=== PATIENT | female | born 1980 | race Caucasian/White ===

== ENCOUNTER → 2017-06-12 07:37 | Outpatient (CLI) | payer BC, MEDICAID, SELFPAY ==
[2017-06-13 14:21] LABS: Chlamydia Trachomatis by PCR POSITIVE (Negative); Neisserai gonorrhoeae by PCR Negative (Negative); Probe Check PASS; Sample Adequacy Control PASS; Specimen Processing Control PASS
[2017-06-18 15:20] LABS: HPV Reflexed? NOT INDICATED
== END ==
PROVIDERS: Visit Provider Obstetrics & Gynecology
DX: R87.613 High grade squamous intraepithelial lesion on cytologic smear of cervix (HGSIL) (principal); Z11.3 Encounter for screening for infections with a predominantly sexual mode of transmission
CPT/HCPCS: 87491; 87591; 88175; G0145

== ENCOUNTER → 2017-10-08 19:33 | Outpatient (CLI) | payer BC, SELFPAY ==
[2017-10-08 21:30] LABS: Chlamydia Trachomatis by PCR Negative (Negative); Neisserai gonorrhoeae by PCR Negative (Negative); Probe Check PASS; Sample Adequacy Control PASS; Specimen Processing Control PASS
[2017-10-15 10:08] LABS: HPV HC, High Risk Negative (Negative)
[2017-10-15 10:47] LABS: HPV Reflexed? YES, CHARGE PATIENT
== END ==
PROVIDERS: Visit Provider Obstetrics & Gynecology
DX: Z12.4 Encounter for screening for malignant neoplasm of cervix (principal); Z11.3 Encounter for screening for infections with a predominantly sexual mode of transmission
CPT/HCPCS: 87491; 87591; 87624; 88175; G0145

== ENCOUNTER → 2019-03-10 16:54 | Outpatient (CLI) | payer MEDICAID, SELFPAY | PROVIDERS: Visit Provider Obstetrics & Gynecology | DX: N39.0 Urinary tract infection, site not specified (principal) | CPT/HCPCS: 87086; 87088 ==

== ENCOUNTER 2019-06-02 15:46 | Emergency (ER) | payer MEDICAID, SELFPAY ==
[2019-06-02 15:47] VITALS: BP 154/88; PULSE 90; RESP 18; TEMP 36.5; O2SAT 98; BMI 38.2
--- NOTE | 2019-06-02 16:15 | VDLE_ITS ---
Reason For Study: swelling RIGHT LEFT GSV is normal. CFV is compressible, spontaneous, phasic, CFV is compressible, spontaneous, phasic, competent, and demonstrates normal competent and demonstrates normal augmentation. augmentation. FV is compressible, spontaneous, phasic, competent and demonstrates normal augmentation. POP V is compressible, spontaneous, phasic, competent and demonstrates normal augmentation. T/P Trunk is compressible. PTV is compressible. RT PerV is compressible. Procedure Exam performed portable in ED. The exam was diagnostic. A preliminary report was called and/or faxed to ED staff. Interpretation Summary There is no evidence of right lower extremity deep vein thrombosis. Right great saphenous vein appears patent and compressible segmentally. Patent and compressible left common femoral vein Ordering Physician: Tresa Doan Performed By: Tez Pacheco RVT
[2019-06-02 16:24] VITALS: RESP 18
--- NOTE | 2019-06-02 16:24 | ED.DCSUM_ITS ---
- ER Visit Summary Date of Service: 06/02/19 Chief Complaint: [Swelling to the right leg] History of Present Illness: The patient is a 38 F [presents to the emergency department complaint swelling to the right leg that started about 2 weeks ago. Patient states that she has had some chronic swelling issues with her legs but typically they get better with elevation. Patient has history of varicose veins. Patient denies any chest pain or shortness of breath. Patient denies recent travel or surgery. She has no history of PE or DVT. Patient is a smoker. Patient denies any trauma to the leg. Patient apparently was seen in urgent care and referred to the ER for rule out of DVT.] Physical Examination: [HEENT-PERRLA, EOMI. Cranial nerves II through XII grossly intact. TMs clear. Mucous membranes moist. No adenopathy. Cardiovascular-regular rate and rhythm without murmur or ectopy Lungs-clear to auscultation, chest wall stable without crepitus or subcu emphysema Abdomen-normoactive bowel sounds, soft, nontender, no rebound or rigidity, no peritoneal signs. Extremities-intact ?4, normal range of motion, normal pulses, atraumatic. Right leg-patient has a large varicosity noted just proximal to the knee onto the medial thigh. Patient also has varicosity below the knee onto the calf. Patient states these are chronic. Patient has some mild discomfort behind the left knee. She has normal dorsal pedal posterior tibial pulses. Patient has normal popliteal pulses.] Test Results: [Venous Doppler of the right lower extremity was obtained and was negative for DVT] Emergency Department Course and Treatment: [] Treatment Plan: [Patient will be referred to vascular surgeon for follow-up as well as given referral to primary care physician. I suspect her edema may be due to her varicose veins.] Disposition: [Discharged home in stable condition] Impression: [Varicose veins right lower extremity Leg edema] This note was generated with [employer] dictation software. It may contain incorrect words, spelling, and punctuation that were not noted in review of the chart prior to signing ED Disposition - Plan for ED Patient: Referrals: Care Physician,No Primary [Primary Care Provider] -
--- NOTE | 2019-06-02 16:43 | ED.DEP ---
ED Disposition - Plan for ED Patient: Instructions: ED Peripheral Edema, Unilateral Referrals: Care Physician,No Primary [Primary Care Provider] - Roby Davis MD [STAFF PHYSICIAN] - 3-5 Days Fly Olsen MD [STAFF PHYSICIAN] - 3-5 Days
[2019-06-02 16:57] VITALS: RESP 16
--- NOTE | 2019-06-02 16:58 | ED.RN ---
REVIEWED D/C INSTRUCTIONS, FOLLOW UP CARE, AND S/S THAT WOULD WARRANT A RETURN TO THE ED WITH PT. PT VERBALIZED AN UNDERSTANDING AND DENIES FURTHER QUESTIONS FOR THIS RN. PT SKIN P/W/D, RESP EVEN AND UNLABORED, PT A&O X 3, NO DISTRESS NOTED. PT AMBULATED OUT OF ED, GAIT STEADY.
== END 2019-06-02 16:59 | disposition home or self-care (01) ==
LOC: ED 16:50
PROVIDERS: Emergency Provider Emergency Medicine
DX: I83.891 Varicose veins of right lower extremity with other complications (principal); Z72.0 Tobacco use
CPT/HCPCS: 93971; 99282

== ENCOUNTER → 2019-11-06 08:49 | Outpatient (CLI) | payer MEDICAID, SELFPAY ==
--- NOTE | 2019-11-06 08:54 | VDLE_ITS ---
Reason For Study: VARICOSE VEINS RIGHT GSV is normal. CFV is compressible, spontaneous, phasic, competent and demonstrates normal augmentation. FV is compressible, spontaneous, phasic, competent and demonstrates normal augmentation. POP V is compressible, spontaneous, phasic, competent and demonstrates normal augmentation. T/P Trunk is compressible. PTV is compressible. RT PerV is compressible. SFJ is INCOMPETENT and measures 1.0 X 1.0 cm. GSV above knee is INCOMPETENT for greater than 0.5 seconds. ASV distal thigh is INCOMPETENT for greater than 0.5 seconds and measures .9 X .9 cm. GSV below knee is competent. ASV proximal calf is INCOMPETENT for greater than 0.5 seconds and measures .6 X .8 cm. ASV mid calf is INCOMPETENT for greater than 0.5 seconds and measures .5 X .6 cm. SSV at junction is competent and measures .2 X .2 cm. Procedure Exam performed in department. Interpretation Summary No DVT or SVT right leg. GSV 7.7mm with reflux into large varicose branches. ASV branches with reflux throughout righ leg. Ordering Physician: Fly Olsen Referring Physician: CAROLYN JAMES Performed By: Justine Linda, MECHE, RVT
== END ==
PROVIDERS: PCP Internal Medicine; Referring Provider Surgery Vascular Surgery; Visit Provider Surgery Vascular Surgery
DX: I83.891 Varicose veins of right lower extremity with other complications (principal)
CPT/HCPCS: 93971

== ENCOUNTER 2019-12-27 14:31 | Emergency (ER) | payer MEDICAID, SELFPAY ==
[2019-12-27 14:31] VITALS: BP 151/99; PULSE 108; RESP 18; TEMP 36.9; O2SAT 98; BMI 39.3
--- NOTE | 2019-12-27 15:23 | ED.VISSUMM ---
- ER Visit Summary Date of Service: 12/27/19 Chief Complaint: [Anxiety] History of Present Illness: The patient is a 39 F [presents to the emergency department via EMS for panic attack. Patient states that her mind keeps racing. She denies feeling suicidal or homicidal. Patient states that she was prescribed escitalopram as well as Ativan by her primary care physician but she did not start taking it because she she thought she would take a supplement with vitamins in it that she felt would help her anxiety. Patient's been under increased stress due to the fact that she is not been able to work because of her anxiety. Patient does see a therapist once a month. She denies recent illness. Patient has no medical history otherwise.] Physical Examination: [HEENT-PERRLA, EOMI. Cranial nerves II through XII grossly intact. TMs clear. Mucous membranes moist. No adenopathy. Cardiovascular-regular rate and rhythm without murmur or ectopy Lungs-clear to auscultation, chest wall stable without crepitus or subcu emphysema Abdomen-normoactive bowel sounds, soft, nontender, no rebound or rigidity, no peritoneal signs. Extremities-intact ?4, normal range of motion, normal pulses, atraumatic] Test Results: [] Emergency Department Course and Treatment: [Patient was given Ativan 1 mg IM. Patient felt significantly improved afterwards. She did not want to speak with counseling center while in the department. She is not suicidal or homicidal.] Treatment Plan: [We will start her Celexa and Ativan as needed. Patient advised to follow-up with her primary care physician within next 5 to 7 days.] Disposition: [Discharged home in stable condition] Impression: Anxiety disorder [] This note was generated with TheBankCloud[employer] software. It may contain incorrect words, spelling, and punctuation that were not noted in review of the chart prior to signing ED Disposition - Plan for ED Patient: Referrals: Martínez Beck MD [Primary Care Provider] -
[2019-12-27] MEDS: LORazepam 2 MG/ML Syringe 1 MG IM (15:43)
--- NOTE | 2019-12-27 16:26 | ED.DEP ---
ED Disposition - Plan for ED Patient: Instructions: ED Panic Attack Referrals: Martínez Beck MD [Primary Care Provider] - 5-7 Days
[2019-12-27 16:54] VITALS: PULSE 80; RESP 16; O2SAT 100
== END 2019-12-27 17:26 | disposition home or self-care (01) ==
LOC: ED 15:18
PROVIDERS: Emergency Provider Emergency Medicine; PCP Internal Medicine
DX: F41.0 Panic disorder [episodic paroxysmal anxiety] (principal); Z72.0 Tobacco use
CPT/HCPCS: 96372; 99284

== ENCOUNTER 2020-01-26 10:45 | Emergency (ER) | payer MEDICAID, SELFPAY ==
[2020-01-26 10:47] VITALS: BP 140/100; PULSE 103; RESP 18; TEMP 36.6; O2SAT 100; BMI 36.6
--- NOTE | 2020-01-26 11:00 | EKG12_ITS ---
Test Reason : PALPS Blood Pressure : / mmHG Vent. Rate : 087 BPM Atrial Rate : 087 BPM P-R Int : 152 ms QRS Dur : 094 ms QT Int : 352 ms P-R-T Axes : 049 041 041 degrees QTc Int : 423 ms Normal sinus rhythm Normal ECG Confirmed by KEVAN HANNA, LORRAINE ([id number]), editor trade journal ALFA AREVALO ([id number]) on 02/01/2020 8:46:51 A M Referred By: ROOSEVELT/SANDRA Confirmed By:MARLYN MATHUR MD
--- NOTE | 2020-01-26 11:04 | NURSING ---
NO OLD EKGS
--- NOTE | 2020-01-26 11:29 | ED.DCSUM_ITS ---
History of Present Illness Chief Complaint: Anxiety Informant: Patient Onset: Days Context: Gradual Onset Timing: Continuous Current Severity: Moderate Maximum Severity: Moderate Narrative: The patient is a 39-year-old female who presents to the emergency department complaining of anxiety. The patient states that they have recently started her on sertraline on . They have also been trying to wean her lorazepam that she takes for anxiety at the same time. She states that she just feels more anxious. She states that she feels hyper and restless. She denies being suicidal or homicidal. She denies any increase in her depression. She states mostly it is just her anxiety and she feels very uncomfortable. She tried to talk to her primary care physician, but was unable to get in touch with them. She presented here. Prior similar symptoms: Yes Recent Illness/Hospitalization: No Past Medical History - Allergies and Home Meds Allergies/Adverse Reactions: Allergies No Known Allergies Allergy (Verified 01/26/20 10:45) Primary Care Physician: Martínez Beck MD [Primary Care Provider] - Prior records reviewed: Yes Past Medical History: - - Anxiety Surgical History: noncontributory Smoking Status: Current every day smoker Review of Systems General: Denies: Chills, Fever, Sweats Eyes: Denies: Visual changes - bilaterally, Diplopia ENT: Denies: Rhinorrhea, Sore throat Cardiovascular: Denies: Chest pain, Palpitations Respiratory: Denies: Dyspnea, Cough, Dyspnea on exertion Gastrointestinal: Denies: Abdominal pain, Nausea, Vomiting, Diarrhea, Melena, Hematochezia Genitourinary: Denies: Dysuria, Hematuria, Frequency Musculoskeletal: Denies: Back pain, Extremity Pain Skin: Denies: Rash, Wounds Neurological: Denies: Headache, Weakness, Numbness Psych: Reports: Anxiety. Denies: Suicidal thoughts, Suicidal ideations Physical Exam Vital Signs/Narrative: Vital Signs Temp Pulse Resp BP Pulse Ox 01/26/20 10:47 97.9 F 103 H 18 140/100 H 100 Inital Vital Signs reviewed: Yes General: Well nourished, Well developed, No Acute Distress Head: Normocephalic, Atraumatic Eyes: Perrl, EOMI ENT: Moist mucous membranes, No rhinorrhea Neck: Supple, Nontender Cardiovascular: Regular rate, Regular rhythm, No murmurs Respiratory: No distress, CTA bilaterally, Chest nontender Abdomen: Soft, Nontender, Nondistended, Normal bowel sounds Back: Nontender, Normal Inspection Extremities: Nontender, No edema Skin: Normal color, No rash Neurological: Alert, Oriented x3, Cranial nerves II-XII grossly intact, Normal Strength, Normal Sensation Psychological: Normal affect, Normal Mood Diagnostic/Tx/Re-eval Abnormal Lab Results 01/26/20 01/26/20 11:30 11:30 WBC 10.2 RBC 5.02 Hgb 16.8 H Hct 50.1 H MCV 99.8 H MCH 33.5 H MCHC 33.5 RDW Std Deviation 44.8 H RDW Coeff of João 12.0 Plt Count 300 MPV 9.0 Immature Gran % (Auto) 0.300 Neut % (Auto) 72.4 H Lymph % (Auto) 20.5 [place] % (Auto) 5.9 Eos % (Auto) 0.4 Baso % (Auto) 0.5 Absolute Neuts (auto) 7.4 Absolute Lymphs (auto) 2.09 Nucleated RBC % 0 Sodium 141 Potassium 3.3 L Chloride 109 H Carbon Dioxide 29.0 Anion Gap 3 L BUN 9 Creatinine 0.78 Estim Creat Clear Calc 87.13 Est GFR (MDRD) Af Amer 106 Est GFR (MDRD) Non-Af 87 BUN/Creatinine Ratio 11.6 Glucose 88 Calcium 9.5 - Medical Decision Making The patient presents with increasing anxiety symptoms. She is not suicidal or homicidal. She did have 2 recent medication change which the feels like it contributing to this. I did obtain metabolic work-up which was unremarkable. Screening labs were obtained. EKG shows sinus rhythm without prolonged QT, dysrhythmia, or other dangerous pathology. The patient was able to meet and discuss with outpatient psychiatry. They have arranged close follow-up which I feel is reasonable. At this point, I do feel the patient is safe for discharge. Impression 1. Anxiety ED Disposition - Plan for ED Patient: Instructions: ED Stress React Referrals: Martínez Beck MD [Primary Care Provider] -
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
[2020-01-26 11:48] LABS: Absolute Lymphocyte Count 2.09 X10^3/uL (0.83-4.51); Absolute Neutrophil Count 7.4 X10^3/uL (2.0-7.7); Basophil# 0.05 X10^3/uL; Basophil% 0.5 % (0-1); Eosinophil# 0.04 X10^3/uL; Eosinophils% 0.4 % (0-5); Hematocrit 50.1 % (37-47); Hemoglobin 16.8 g/dL (12.0-15.0); Lymphocyte # 2.09 X10^3/ul (4.0); Lymphocyte % 20.5 % (19-41); Mean Corp Hgb Conc 33.5 g/dL (32-36); Mean Corpuscular Hgb 33.5 pg (27.0-32.0); Mean Corpuscular Volume 99.8 fL (81-99); Monocyte% 5.9 % (0-10); NRBC Flagged by Analyzer 0 % (0-5); Neutrophil # 7.41 X10^3/uL (2.7-7.7); Neutrophil % 72.4 % (47-70); Platelet Count 300 K/mm3 (150-450); RBC Distribution Width SD 44.8 fl (35.1-43.9); Red Blood Count 5.02 M/mm3 (4.2-5.4); White Blood Count 10.2 K/mm3 (4.4-11.0)
[2020-01-26 11:55] LABS: Anion Gap 3 (5-15); BUN 9 mg/dL (7-18); BUN/Creat Ratio 11.6 RATIO (10-20); Calcium,Total 9.5 mg/dL (8.5-10.1); Chloride 109 mmol/L (98-107); Creatinine, Serum 0.78 mg/dL (0.55-1.02); EST Glomerular Filtration Rate 87 mL/min (>60); Est Glom Filt Rate - Afr Amer 106 mL/min (>60); Estimated Creatinine Clearance 87.13 ml/min; Glucose 88 mg/dL (74-106); Potassium 3.3 mmol/L (3.5-5.1); Sodium Level 141 mmol/L (136-145)
[2020-01-26] MEDS: LORazepam 2 MG/ML Syringe 0.5 MG IV (12:00)
--- NOTE | 2020-01-26 12:45 | CM.ED ---
Social Work This social work instructor checking in with patient about meeting with Luis Enrique from Behavioral Health. Patient reports it went well. Patient reports plan to follow up with Luis Enrique tomorrow on when to start the program. Patient with no further questions/needs. Nate MCCONNELL, JEFFERY
[2020-01-26 13:21] VITALS: BP 119/78; PULSE 81; RESP 16; O2SAT 97
--- NOTE | 2020-01-26 13:22 | ED.RN ---
THIS NURSE REVIEWED D/C INSTRUCTIONS WITH PT. PT VERBALIZED UNDERSTANDING OF INSTRUCTIONS. IV D/C. IV CATHETER INTACT. PT TOLERATED WELL. PT DENIES FURTHER NEEDS OR QUESTIONS AT TH ISTI ME
== END 2020-01-26 13:23 | disposition home or self-care (01) ==
LOC: ED 11:44
PROVIDERS: Emergency Provider Emergency Medicine; PCP Internal Medicine
DX: F41.9 Anxiety disorder, unspecified (principal); Z79.899 Other long term (current) drug therapy; F17.200 Nicotine dependence, unspecified, uncomplicated
CPT/HCPCS: 80048; 85025; 93005; 96374; 99283; A4216

== ENCOUNTER 2020-01-30 11:35 | Emergency (ER) ==
--- NOTE | 2020-01-30 11:55 | ED.DCSUM_ITS ---
History of Present Illness Chief Complaint: Anxiety Informant: Patient Onset: Weeks Context: Gradual Onset Narrative: Patient presents secondary to anxiety and panic attacks. She has a history of anxiety and has undergone multiple medication changes over the past week. She states in the last week they have tapered her from 2 mg of Ativan a day down to 0.5 mg. She has had frequent panic attacks. She was in the ER couple days ago and had a full metabolic work-up that was unremarkable. Patient returns today with another panic attack. She states that she is on Zoloft and they recently added Lexapro to this. Her medications were previously handled by her PCP but recently switched to the counseling center. - Past Medical History (1) Anxiety Status: Chronic Past Medical History - Allergies and Home Meds Allergies/Adverse Reactions: Allergies No Known Allergies Allergy (Verified 01/30/20 11:39) Primary Care Physician: Martínez Beck MD [Primary Care Provider] - Prior records reviewed: Yes Surgical History: noncontributory Smoking Status: Current every day smoker Review of Systems General: Denies: Chills, Fever Eyes: Denies: Visual changes - bilaterally ENT: Denies: Bilateral ear pain Cardiovascular: Denies: Chest pain Respiratory: Denies: Dyspnea, Cough Gastrointestinal: Denies: Abdominal pain, Vomiting Musculoskeletal: Denies: Extremity Pain Skin: Denies: Rash Psych: Reports: Anxiety, - - Mind racing Hematologic: Denies: Easy bruising, Easy bleeding Allergy: Denies: Uticaria Physical Exam Vital Signs/Narrative: Vital Signs Temp Pulse Resp BP Pulse Ox 01/30/20 11:36 96.8 F L 94 16 119/90 H 99 Inital Vital Signs reviewed: Yes General: Well nourished, Well developed Head: Normocephalic ENT: Moist mucous membranes Neck: Supple Cardiovascular: Regular rate, Regular rhythm Respiratory: No distress, CTA bilaterally Abdomen: Soft, Nontender Skin: Normal color Neurological: Alert, Oriented x3 Psychological: - - Anxious and intermittently tearful. Denies suicidal ideation at this time. Patient admits that she is confused what what medication she is supposed to be taking. Diagnostic/Tx/Re-eval - Medical Decision Making Patient was given 1 mg of Ativan p.o. Patient was seen by Nimesh from social work. She made phone calls to counseling center and we reviewed prescriptions. Patient was seen by Elizabeth Tobin who restarted her Lexapro and told her to stop the Ativan. At this time we will write her an appropriate Ativan taper to see if this helps with her symptoms. Patient feels better with this plan. ED Disposition - Plan for ED Patient: Disposition: Home or Assisted Living Diagnosis: Anxiety Instructions: ED Stress React Prescriptions: Lorazepam [Ativan] 0.5 mg PO TID PRN #26 tablet PRN Reason: Anxiety Transmission Status: Sent to [email or web address] Referrals: Counseling,Center [GROUP OF PHYSICIANS] - As soon as possible
[2020-01-30] MEDS: LORazepam 1 MG Tablet PO (12:01)
--- NOTE | 2020-01-30 13:35 | CM.ED ---
SOCIAL WORK Informant: Dr. Frausto Reason for Consult: Anxiety Chief Compliant: Patient physician will no longer prescribe Ativan. Patient states was not tapered off medication. Patient having increased anxiety and panic attacks. Met with patient in room. Introduced role and reason for referral. Patient open to speaking with this worker. Patient states lives at home with 2 children. Patient states is employed with [employer] but has not been able to work due to anxiety. Patient states recently started back on Lexapro and is also prescribed Zoloft. Patient reports Dr. Knapp was prescribing Ativan and after last refill in December was informed would no longer prescribe Ativan. Patient states just recently starting seeing Elizabeth Mayotry through [facility]. Patient states had been on Ativan in the past and is wanting to come off Ativan, but feels would benefit from tapering off medication. Patient denies any suicidal ideation, plan or intent. Patient tearful stating I just didn't know what else to do. Patient reports may follow up with [facility] on Saturday. Collaboration with Dr. Frausto. Dr. Jett frankel will prescribe to aid in tapering patient from medication. Patient gave permission for this worker to follow up with [facility] regarding increased anxiety and plan for patient to leave ER with prescription for Ativan to assist patient in tapering off medication. Call to Ana with Crisis. Ana updated on the above and [facility] will update Psych Services. Plan: Home with continued follow up with mental health services. Lauren Pinto, DATA ANALYTICS ANALYST, ASSEMBLY CLEANER
== END 2020-01-30 13:44 | disposition home or self-care (01) ==
LOC: ED 13:38
DX: F41.9 Anxiety disorder, unspecified (principal); Z79.899 Other long term (current) drug therapy; F17.200 Nicotine dependence, unspecified, uncomplicated
CPT/HCPCS: 99283; 99285

== ENCOUNTER 2020-02-03 09:00 | Outpatient (RCR) | payer MEDICAID, SELFPAY ==
[2020-01-30 11:36] VITALS: BMI 43.2
--- NOTE | 2020-02-03 09:00 | BH.SGPN.GN ---
Behaviors/Verbalizations/Mental Status: []Client alert and oriented, casually dressed and appropriately groomed. Eye contact fair. Motor activity appropriate. Speech within normal limits. Affect constricted, mood depressed and anxious. Thoughts linear, logical, no signs of hallucinations or delusions. Client Response/Progress/Benefit: []Pt responded well to session AEB pt listening attentively to peers and sharing thoughts and feelings. Pt's first day in IOP. Pt reported she is seeking help because I'm struggling to do every day stuff. Pt stated she will become overwhelmed which results in her doing nothing. Pt reported she feels stuck. Pt stated she feels bad because she doesn't have the energy or motivation to do games/activities with her 4 year old. Pt reported she feels torn about knowing she wants treatment but also worried what people at work will think about her. Pt seemed to benefit from support from peers. Pt to continue IOP to increase healthy coping, improve daily functioning and prevent decompensation. Narrative Note: []
--- NOTE | 2020-02-03 09:47 | BH.COMM ---
Communication Note - Communication with Client Communication Note: Met with pt to complete inital paperwork. No significant changes since pre-admission screening. Completed [facility] Screening. Low risk. Reports wishes of within the past month, but denies ever having thoughts of actually wanting to kill herself. No history of suicide attempts and future oriented.
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
[2020-02-03 11:16] VITALS: BP 132/85; PULSE 81
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
--- NOTE | 2020-02-03 12:24 | BH.PSY.EVA_ITS ---
Initial Treatment Plan - Patient Information Visit Information: ADMISSION DATE: EXPECTED LOS: 4-6 weeks - Problems/Symptoms Problem #1:: Depression Symptom:: sadness, low motivation, decreased concentRATION, passive SI, low red rgy Problem #2:: Anxiety Symptom:: Restlessness, worry, panic attacks, avoidance
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
--- NOTE | 2020-02-05 10:15 | BH.SGPN.GN ---
Behaviors/Verbalizations/Mental Status: []Client alert and oriented, casually dressed and appropriately groomed. Eye contact fair. Motor activity restless. Speech within normal limits. Affect constricted, mood anxious. Thoughts linear, logical, no signs of hallucinations or delusions. Client Response/Progress/Benefit: []Client passive participant AEB client not providing input throughout session however appeared to listen attentively to peers and took notes throughout. During discussion of quote client agreed with others that she doesn?t believe personal growth occurs by ?chance?. Client appeared to connect with other?s comments about how environment and upbringing can impact personal growth. Client listened to group identify forces that can impact growth and overall mental health. Will continue in IOP to decrease anxiety, improve daily functioning and prevent decompensation. Narrative Note: []
--- NOTE | 2020-02-05 14:08 | BH.MDN ---
Multi-Disciplinary Note - Note 60-min Individual Time Started:: 09:05 Date: 02/05/20 Purpose of session/treatment goals addressed:: The purpose of this session was to deescalate client's anxiety symptoms by teaching client coping skills and providing emotional support. Eye Contact:: Good Motor Activity:: Restless - AEB shaking leg and frequently changing positions on the couch. Speech:: Rambling, Rapid Mood:: Anxious, Dysthymic Affect:: Congruent - tearful Thoughts:: Racing, Other - ruminations Staff Interventions:: Therapist used active listening and provided emotional support. Therapist used mindfulness and grounding techniques to help client manage anxiety in the moment. Extensive discussion on what client can do over the weekend to manage anxiety. Provided brief psychoeducation on depressive and anxiety cycles. Therapist also wrote client a letter to give her employer that explains client is participating in IOP. Client Response:: Client asked to meet with therapist instead of going to first group this morning. Presented as highly anxiety and disheveled. Client reports feeling overwhelmed due to multiple stressors with the biggest being her job. Racing thoughts and tearful at the beginning of session, but able to calm down by the end of session. Client stated she is supposed to go back to work this Saturday. Client tried to go back to work last weekend and could not stay due to anxiety and panic attacks. Client shared she has no more time off as client has used her FMLA and short-term disability per her report. Client receptive to learning healthy coping skills and practiced deep breathing and 5-senses in session. Client learned how anxiety impacts the brain and about maintenance cycles. Client created a plan for the weekend which included going for a drive, spending time with her daughter, and going for a walk. Client shared talking with a support helps her manage anxiety and client plans to spend time with her best friend bryant. Client is not suicidal and can keep herself safe this weekend. Risks/Concerns:: Client denies any suicidal ideations, plan, or intent as of 02/05/20. Progress Toward Goals/Plan:: Client started IOP on 02/03/20 no progress to document. Client presents with significant anxiety today AEB crying, SOB, difficulty concentrating and engaging in group, and racing thoughts. Client currently worried about her job as client has no more time off and does not feel able to return to work due to panic attacks. Client and therapist created a plan for the weekend to help client cope with anxiety. Client to continue IOP tx to prevent decompensation and increase healthy coping skills. Time Stopped:: 10:05
--- NOTE | 2020-02-09 09:01 | BH.SGPN.GN ---
Behaviors/Verbalizations/Mental Status: []Client alert and oriented, casually dressed and groomed. Eye contact fair to good. Motor activity appropriate. Speech within normal limits. Affect congruent, mood anxious, dysthymic. Thoughts linear, logical, no signs of hallucinations or delusions. Reviewed client?s symptom tracker, reports suicidal ideation as 2/5 and intent as 1/5 which is slightly elevated compared to client baseline. Client future oriented and reports protective factors. Willing to meet with therapist for further assessment. Client Response/Progress/Benefit: []Client receptive to session, willing to engaged in discussion. Client reports feeling anxious and overwhelmed this morning. Attributes current emotions to ongoing difficulties in managing her parenting responsibilities as she works on her mental health. Discussed constantly worrying about her son and his safety which impedes her own ability to relax or take breaks. Shared feeling guilty about asking her sister for help but knows she needs the assistance in order to best manage her current stress levels. Client struggled to identify current positives, however was receptive of supportive feedback. Appeared to benefit from group support and positive feedback. Continues to struggle with significant anxiety and distorted thoughts impacting progress. Will continue IOP tx to prevent decompensation, continue to promote mood stability, and further improve anxiety management. Narrative Note: []
--- NOTE | 2020-02-09 11:19 | BH.SGPN.GN ---
Behaviors/Verbalizations/Mental Status: []Client alert and oriented, disheveled appearance. Eye contact good. Motor activity appropriate. Speech within normal limits. Affect constricted, mood anxious and dysthymic. Client Response/Progress/Benefit: []Client responded well to session, connecting with peers and receptive to supportive statements. Client engaged in the boundary self-assessment activity and attentive during psychoeducation on the different boundary styles. Client reported ?I?m rigid and porous? as client struggles with asking for help and often struggles with saying no to others. Client participated in brainstorming strategies to improve boundary setting and reports wanting to work on communicating her needs clearly with others which will help client set healthy boundaries. Progress noted in client?s increased engagement in group, but she continues to struggle with negative thinking and severe anxiety. Will continue IOP tx to prevent decompensation, improve healthy coping skills, and improve daily functioning. Narrative Note: []
--- NOTE | 2020-02-09 14:07 | BH.MDN_ITS ---
Multi-Disciplinary Note - Note 45-min Individual Time Started:: 12:20 Date: 02/09/20 Purpose of session/treatment goals addressed:: The purpose of this session was to deescalate client's anxiety symptoms by teaching client coping skills and providing emotional support. Another goal was to provide psychoeducation on anxiety and negative thoughts. Eye Contact:: Good Motor Activity:: Restless - AEB shaking. Facial Twitching Appearance:: Disheveled Speech:: Rambling, Rapid Mood:: Anxious, Dysthymic Affect:: Congruent - tearful Thoughts:: Racing, Circular, No evidence of hallucinations/delusions noted Staff Interventions:: Therapist used active listening and provided emotional support. Therapist used mindfulness and grounding techniques to help client manage anxiety in the moment. Extensive discussion on what client can do today to manage anxiety and reframe negative thinking. Provided brief psychoeducation on anxiety and cognitive distortions. Therapist gently challenged client?s distorted thoughts and used strengths perspective to promote self-compassion. Therapist assessed risk and client reported ability to maintain safety today. Client Response:: Client entered session anxious, but alert and oriented. Client receptive to meeting with therapist. Client stated she is currently struggling with negative thinking and guilt today. Client reported this was triggered after talking to a leader from the buddhist client used to attend regularly. Client shared she meant well, but it made me feel like I was bad so that's why I'm anxious. Client stated this person told client to read the bible and listen to the bible to reduce client's panic, but client does not think this will be helpful. Client appears to struggle significantly with decision-making which results in panic and ruminations. Receptive to practicing cognitive restructuring and was able to reframe her distorted thoughts somewhat. Client identified several self-talk statements which client wrote down to read when not at IOP. Client and therapist discussed how mental health progress and thought reframing takes time and effort. Client receptive to psychoeducation on how anxiety impacts the body and discussed strategies to help distract client. Risks/Concerns:: Client's daily symptom tracker scores for suicidal ideations and risk of suicide were higher than client's baseline. Client denies any active suicidal thoughts, plan, or intent today, but endorses passive SI due to feeling helpless because of the intensity of client's anxiety. Client stated, I don't actually want to hurt myself, but I think sometimes that's the only option that will make me feel better. Client reports ability to maintain safety and will be spending today with her youngest child. Future oriented. Progress Toward Goals/Plan:: Client has been consistent with attending IOP which is beneficial to progress, but no progress noted in symptom reduction. Client presents with significant anxiety today AEB crying, SOB, difficulty concentrating, nausea, and racing thoughts. Client also endorses hopelessness, passive SI, and inappropriate guilt. Client continues to not be able to function at home. Client receptive to identifying self-talk statements. Client to continue IOP tx to prevent decompensation, maintain safety, and increase healthy coping skills. Time Stopped:: 13:00
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
--- NOTE | 2020-02-10 09:02 | BH.SGPN.GN ---
Behaviors/Verbalizations/Mental Status: []Client alert and oriented, disheveled appearance. Eye contact good. Motor activity restless. Speech within normal limits. Affect constricted, mood anxious. Thoughts linear, logical, no signs of hallucinations or delusions. Reviewed client?s symptom tracker, client scored 1/5 for thoughts of suicide and 1/5 for risk of suicide. Client denies any active plans or intent to harm herself. Future oriented and reporting feeling less hopeless. Client Response/Progress/Benefit: []Client responded well to session, providing supportive feedback to peers. Client reports feeling anxious but less hopeless this morning. Client reported she slept well last night and overall client shares feeling a little bit better. Client reports belief that the coping skills she has been learning have been helpful such as opposite action. Client stated she showered and cleaned yesterday, but last night was a high anxiety night for client. Client reported she wants to feel better and knows this will take time. Client reported she wants to continue to remind herself that she can do it and she can advocate for her needs. Appeared to benefit from gaining support from peers and reflecting on her positives. Will continue IOP tx to prevent decompensation, improve emotional regulation, and reduce negative thinking. Narrative Note: []
--- NOTE | 2020-02-10 11:20 | BH.SGPN.GN ---
Behaviors/Verbalizations/Mental Status: [] Client alert and oriented, casually dressed and groomed. Eye contact good. Motor activity appropriate. Speech within normal limits, quiet. Affect congruent, mood anxious and depressed. Thoughts linear, logical, no signs of hallucinations or delusions Client Response/Progress/Benefit: [] Client responded well to session, actively listening and taking notes throughout, provided some limited input. Client actively listening and taking notes as the group discussed the different categories of coping skills which included distraction, emotional release, grounding, self-love, and thought challenging. Appeared to connect with provided examples for each category and wrote down several examples shared by fellow participants, noting connecting especially with grounding skills. Client participated in creating a coping skills ?menu? for the five categories of coping skills. Client's coping skill menu included: music, coloring, deep breathing, dancing, talking to herself as she would a friend, and reframing. Shared wanting to focus on more active application of healthy self-love skills by taking more time to practice speaking kindly to herself. Client progress indicated by ability to connect materials to own life. Appeared to benefit from increasing repertoire of healthy coping skills. Will continue tx to further improve mood stability, reduce depression and anxiety, and prevent decompensation. Narrative Note: []
--- NOTE | 2020-02-10 12:36 | PCM.BH.PN ---
Progress Note Progress Note: History of Present Illness/Interim History: [] Patient is a 39-year-old female who is seen in follow-up at the [facility] IOP program. I last saw the patient 1 week ago and at that time she was being weaned from Ativan on a regimen given her by an outpatient psychiatric provider. Patient states that she was down to Ativan 0.5 mg once daily for 2 days but she said her anxiety and withdrawal symptoms became much more severe. She describes her mind racing, shortness of breath and complete inability to sleep 2 nights ago. In addition she has noticed twitching and tremors and jerks of various parts of her body. The patient was trying to go back to work last week but had a panic attack in the parking lot and never went into the building. She then was post to go back to work the next day but was unable to go to work and probably bubbly will be fired. She has no more FMLA time. She has had increased anxiety which has been noticed during the IOP groups. She has been seen pacing in IOP and having to leave the group due to anxiety. She feels depressed and extremely anxious. Her sleep improved last night because she started taking 0.5 mg of Ativan twice a day and her sleep improved to 5 hours a night. She has fleeting passive suicidal ideations and she does endorse also passive thoughts of . She denies active suicidal ideation or plan for suicide. She denies homicidal ideation, hallucinations, delusions and symptoms of juwan. Current Psychiatric Medications: [] Lexapro increased to 7.5 mg daily (increased recently and has been on this for about a month); Zoloft 50 mg p.o. nightly (x3 weeks); Ativan has been tapered over 2-week. And patient is at the end of the taper. Hydroxyzine 25 mg p.o. as needed but she says that it makes her too tired and she does not like taking it. Mental Status Examination: [] Patient is a 39-year-old female who appears normal for stated age and is seen wearing a mask due to the pandemic. She is casually dressed and groomed with good hygiene. She has mild psychomotor agitation in the form of rapid blinking of her eyes off and on during the interview. Her speech is normal rate and rhythm and fluent with no pressure. Eye contact is good. Mood is depressed. Affect is constricted. Thought process is goal-directed and organized. Thought content: There is evidence of fleeting, passive suicidal ideation and passive thoughts of . No evidence of active suicidal ideation or plan. No evidence of hallucinations or delusions. Insight improving. Impulsivity: Low to moderate. Diagnoses: [] [place] I: [] Major depressive disorder, recurrent, severe without psychosis; panic disorder; history of PTSD [place] II: [] Deferred [place] III: [] Increased anxiety withdrawal symptoms due to weaning from benzodiazepine Ativan [place] IV:[]] Primary support, financial and work issues Plan: [] Patient will continue the IOP program at [facility] as the support, structure, education, individual and group therapy will hopefully prevent worsening of the patient's symptoms. The patient felt felt safe during the interview and if at any time she does not feel safe she will let us know or go to the emergency room. The risk, options, possible side effects and complications of the medications were discussed with the patient and she understands and accepts these. Again the risks of weaning benzodiazepines were also discussed with the patient. In light of the fact that the patient is unable to participate in IOP or function whatsoever due to her withdrawal symptoms from her Ativan weaning Long discussion was had with the patient about a different option for weaning the Ativan. The patient agreed after long discussion to the following plan. (1) stop Lexapro; (2) increase Zoloft to 100 mg p.o. daily., (3) stop Ativan. (4) start Klonopin 0.5 mg, 1 by mouth in the morning and 1 by mouth in the evening. The patient will not drive until she make sure the Klonopin does not make her too tired to drive. If 1 0.5 mg Klonopin makes you her too tired she will take 0.25 mg of Klonopin twice a day. Patient will need to be maintained on this until the Zoloft is at a level where anxiety is more manageable. At that time then a long wean of the Klonopin will be undertaken with slow reduction of the Klonopin dose possibly over several months until she is off the Klonopin. Patient will also continue to follow-up with outpatient providers.
--- NOTE | 2020-02-12 10:20 | BH.SGPN.GN ---
Behaviors/Verbalizations/Mental Status: []Client alert and oriented, casual dress, hygiene fair. Eye contact good. Motor activity appropriate. Speech within normal limits. Affect congruent. Mood anxious, depressed. Thoughts linear, logical, no signs of hallucinations or delusions. Client Response/Progress/Benefit: [] Pt receptive of session AEB taking notes, remaining attentive, and providing some input during discussion defining resilience; however, remained a mostly passive participant throughout. Pt expressed connecting to the topic of resilience, indicating that we are taught to be ?strong? when faced with stressors but being flexible actually helps us develop more resilience. She was an active listener and contributed some during discussion of the costs of resisting change and the benefits of adapting to adversity. Share that for her resisting change has resulted in feeling hopeless in the past. Group identified costs of resisting change to include: staying stuck, difficulty managing crises, not seeing opportunities to improve current situation, and decrease in self-care. Attentive during psychoeducation on various linda factors in developing personal resilience. Pt seemed to benefit from increasing awareness of strategies to increase personal resilience and the impacts of resilience on managing mental health sx. Progress noted in pt self-report of improved ability to connect with treatment materials however continues to struggle with active application of anxiety management skills in the moment. Will continue IOP tx to promote the use of healthy anxiety management skills, further improve emotion regulation, and prevent decompensation. Narrative Note: []
== END 2020-02-13 23:59 ==
LOC: BHIOP 09:00
PROVIDERS: PCP Internal Medicine; Referring Provider Psychiatry & Neurology Psychiatry; Visit Provider Psychiatry & Neurology Psychiatry
DX: F33.2 Major depressive disorder, recurrent severe without psychotic features (principal); F43.10 Post-traumatic stress disorder, unspecified; F41.9 Anxiety disorder, unspecified; Z79.899 Other long term (current) drug therapy; F17.210 Nicotine dependence, cigarettes, uncomplicated; R45.851 Suicidal ideations
CPT/HCPCS: 90792; 99214; H0035; H2012; H2020; T1002; 90834; 90837

== ENCOUNTER 2020-02-06 11:06 | Emergency (ER) | payer MEDICAID, SELFPAY ==
[2020-01-30 11:36] VITALS: BMI 43.2
[2020-02-06 11:06] VITALS: BP 147/107; PULSE 87; RESP 15; TEMP 36.4; O2SAT 99; BMI 35.2
--- NOTE | 2020-02-06 11:39 | ED.VIS.PSYCH ---
History of Present Illness Informant: Patient Onset: Yesterday Context: Gradual Onset Conflict: Family Timing: Continuous Current Severity: Severe Maximum Severity: Severe Worsened by: Situational factors Associated Symptoms: Depressed, Change in sleeping, Decreased Interest. Negative for: Guilt, Decreased Concentration, Hopelessness, Suicidal Thoughts, Easily distracted, Grandiosity, Flight of Ideas, Increased activity, Pressured Speech, Agitated, Angry, Hostile, Threatening, Confusion, Paranoia, Visual Hallucinations, Auditory Hallucinations Specific plan (suicidal thought): none Narrative: 39-year-old female presents to the emergency department with anxiety. Patient has been dealing with anxiety now for the last 4 to 5 months. She has been seeing the mental health counselors. She is been seeing a psychiatrist. She was started on Zoloft 3 weeks ago and Lexapro a week ago. She states those medicines are not helping her. She was also prescribed Ativan but they are weaning her off of it. She is not suicidal she is not homicidal no delusions no paranoia no hallucinations. She denies drugs or alcohol. She thinks she needs anxiety medicine but they are weaning her off the Ativan and Vistaril does not help Prior similar symptoms: Yes Recent Illness/Hospitalization: No <Addy Keys - Last Filed: 02/06/20 12:37> <Mannie Neal - Last Filed: 02/06/20 12:48> Chief Complaint: Anxiety Past Medical History Prior records reviewed: Yes Past Medical History: - - Depression and anxiety Surgical History: noncontributory Lives: With Family Smoking Status: Current every day smoker Alcohol: Occasional Drugs: None <Addy Keys - Last Filed: 02/06/20 12:37> <Mannie Neal - Last Filed: 02/06/20 12:48> - Allergies and Home Meds Allergies/Adverse Reactions: Allergies No Known Allergies Allergy (Verified 02/06/20 11:10) Primary Care Physician: Martínez Beck MD [Primary Care Provider] - Review of Systems All systems negative except as indicated General: Denies: Chills, Fever, Sweats Eyes: Denies: Visual changes - bilaterally, Diplopia ENT: Denies: Rhinorrhea, Sore throat Cardiovascular: Denies: Chest pain, Palpitations Respiratory: Denies: Dyspnea, Cough, Dyspnea on exertion Gastrointestinal: Denies: Abdominal pain, Nausea, Vomiting, Diarrhea, Melena, Hematochezia Genitourinary: Denies: Dysuria, Hematuria, Frequency Musculoskeletal: Denies: Back pain, Extremity Pain Skin: Denies: Rash, Wounds Neurological: Denies: Headache, Weakness, Numbness Psych: Reports: Depression, Anxiety. Denies: Suicidal thoughts, Suicidal ideations <Addy Keys - Last Filed: 02/06/20 12:37> Physical Exam Vital Signs/Narrative: Vital Signs Temp Pulse Resp BP Pulse Ox 02/06/20 11:06 97.5 F L 87 15 147/107 H 99 Inital Vital Signs reviewed: Yes General: Well nourished, Well developed Head: Normocephalic, Atraumatic Eyes: Perrl, EOMI ENT: Moist mucous membranes, No rhinorrhea Neck: Supple, Nontender Cardiovascular: Regular rate, Regular rhythm, No murmurs Respiratory: No distress, CTA bilaterally, Chest nontender Abdomen: Soft, Nontender, Nondistended, Normal bowel sounds Back: Nontender, Normal Inspection Extremities: Nontender, No Edema Skin: Normal color, No rash Neurological: Alert, Oriented x3, Cranial nerves II-XII grossly intact, Normal Strength, Normal Sensation Psych: Normal Speech Pattern, Logical sequential goal directed thoughts, Normal Appearance, Depressed, Flat Affect. Negative for: Irritable, Euphoric, Labile, Blunted Affect, Restricted Affect, Pressured Speech, Poverty of Speech, Flight of Ideas, Incoherent thoughts, Suicidal thoughts, Homicidal thoughts, Hallucinations, Delusions, Paranoid Ideation, Poor Insight, Limited Insight, Poor Judgement, Limited Judgement <Addy Keys - Last Filed: 02/06/20 12:37> Vital Signs/Narrative: Vital Signs Temp Pulse Resp BP Pulse Ox 02/06/20 11:06 97.5 F L 87 15 147/107 H 99 <Mannie Neal - Last Filed: 02/06/20 12:48> Diagnostic/Tx/Re-eval Patient is not suicidal. Patient is not homicidal. We discussed with patient that her psychiatrist is weaning her off Ativan we do not feel it is in her best interest to give her more. We had her speak with our mental health counseling. They arrange for close follow-up. Mental health counselor states she will call the patient later today to check on her and they have a plan for today and that they agree she is not in need of acute psychiatric hospitalization. I will prescribe the patient Vistaril and she will be discharged <Addy Keys - Last Filed: 02/06/20 12:37> Attending note: I saw this patient with the physician market research assistant. Patient reports a history of anxiety. She reports increasing anxiety and depression symptoms. She is not suicidal. She is on antidepressants, but started one of them 3 weeks ago and the other one 1 week ago. She was previously on Ativan, and she is being weaned off Ativan. She was on Vistaril in the past, but it made her excessively drowsy. Afebrile head vital signs unremarkable. Alert and oriented. No acute distress. Sitting and breathing comfortably. Depression and anxiety Patient did not want Vistaril. She is being weaned off of Ativan. She is on antidepressants. She does not require hospitalization. She spoke with counseling center and they will follow-up as an outpatient. <Mannie Neal - Last Filed: 02/06/20 12:48> ED Disposition <Addy Keys - Last Filed: 02/06/20 12:37> <Mannie Neal - Last Filed: 02/06/20 12:48> - Plan for ED Patient: Disposition: Home or Assisted Living Diagnosis: Anxiety Instructions: ED Stress React Prescriptions: hydrOXYzine pamoate capsule [Vistaril] 25 mg PO TID PRN PRN #30 cap PRN Reason: Anxiety Prescription Printed Referrals: Martínez Beck MD [Primary Care Provider] -
== END 2020-02-06 12:45 | disposition home or self-care (01) ==
PROVIDERS: Emergency Provider Physician Assistant Medical; PCP Internal Medicine
DX: F41.9 Anxiety disorder, unspecified (principal); F32.9 Major depressive disorder, single episode, unspecified; Z79.899 Other long term (current) drug therapy; F17.200 Nicotine dependence, unspecified, uncomplicated
CPT/HCPCS: 99281

== ENCOUNTER 2020-02-16 09:00 | Outpatient (RCR) | payer MEDICAID, SELFPAY ==
[2020-02-14 00:40] VITALS: BP 132/85; PULSE 81
--- NOTE | 2020-02-16 09:05 | BH.SGPN.GN ---
Behaviors/Verbalizations/Mental Status: []Client alert and oriented, disheveled appearance. Eye contact good. Motor activity appropriate. Speech within normal limits. Affect constricted, mood anxious. Thoughts linear, logical, no signs of hallucinations or delusions. Reviewed client?s symptom tracker, no risk for suicidal ideation, plan, or intent as of 02/16/20. Client Response/Progress/Benefit: []Client responded well to session, attentive and providing supportive statements. Client reports feeling anxious but hopeful this morning. Client stated she continues to struggle with panic attacks, ruminations, and anxiety daily, but client recognizes there are ways that client can get better. Client reported she has been reminding herself to focus on personal goals, reviewing IOP notes, and using journaling to cope with her anxiety. Appeared to benefit from reflecting on coping skills she has been using to manage anxiety. Progress noted in client's report of hope. Will continue IOP tx to reduce the intensity, duration, and frequency of anxiety to improve functioning. Narrative Note: []
--- NOTE | 2020-02-16 11:19 | BH.SGPN.GN ---
Behaviors/Verbalizations/Mental Status: [] Client alert and oriented, casual dress, hygiene fair. Eye contact good. Motor activity appropriate, at times. speech and tone WNL. Affect congruent. mood anxious, euthymic. Thoughts linear, logical, no signs of hallucinations or delusions. Client Response/Progress/Benefit: []Client engaged in session AEB listening to and providing input throughout discussion as well as taking notes. Client identified avoidance, not asking for help, anxiety/fear of the unknown, and negative and distorted thoughts are behaviors she engages in that keeps her stuck from moving forward. Client attentive during psychoeducation about problem solving protocol and expressed connecting to different steps reviewed. Client did well to work with the group to brainstorm strategies to promote making progress towards their desired chapter. Identified wanting to work on addressing current barrier of negative thoughts which reinforce self-blame. Shared one thing she can do to move forward is to begin creating a list of positive affirmations and accomplishments she can look at when finding herself focusing on areas in which she feels she has failed. Appeared to benefit from increased insight regarding her current ?Chapter? in life and reviewing strategies for promoting continued progress and prevent regression. Progress noted in self-report of improved use of grounding skills though continues to struggle with significant negative thoughts reinforcing depression and anxiety. Will continue IOP tx to prevent decompensation, challenge distorted thoughts and increase healthy coping. Narrative Note: []
--- NOTE | 2020-02-17 09:00 | BH.SGPN.GN ---
Behaviors/Verbalizations/Mental Status: []Client alert and oriented, casually dressed and groomed. Eye contact good. Motor activity WNL, at times appearing restless AEB shaking leg. Speech within normal limits. Affect congruent, mood anxious. Thoughts linear, logical, no signs of hallucinations or delusions. Reviewed client?s symptom tracker, no risk for suicidal ideation, plan, or intent as of 02/17/20. Client Response/Progress/Benefit: []Pt responded well to session, actively listening throughout and openly processed with group. Pt reports feeling ?anxious this morning and shared that she had been struggling with significant anxiety most of the previous night. Pt reported she had not wanted to do anything as a result of the influx in anxiety, however challenged herself to still make dinner as well as set aside time to do some positive journaling. Pt identified these as mental health wins and went on to indicate working on more actively using positive self-talk, thought challenging, and grounding skills. Expressed current stressor as struggling with rumination regarding the current election, though did well to identify that this is out of her control now and that she can use healthy distraction to reduce anxiety while final votes are tallied. Appeared to benefit from group support and structure. Progress noted in overall improved application of in the moment stress management skills, though continues to struggle with significant anxiety impacting overall self-esteem and daily functioning. Recommended continued IOP tx to further continue to promote application of anxiety management skills, improve self-confidence, as well as prevent decompensation. Narrative Note: []
--- NOTE | 2020-02-17 10:17 | BH.SGPN.GN ---
Behaviors/Verbalizations/Mental Status: []Client alert and oriented, disheveled appearance. Eye contact good. Motor activity restless. Speech within normal limits. Affect congruent, mood anxious. Thoughts linear, logical, no signs of hallucinations or delusions. Client Response/Progress/Benefit: []Client an active participant during group AEB client contributing input to discussion, able to make connections throughout. Client agreed with group that it is important to have a variety of social supports. Group identified benefits of social support as not feeling alone, gaining different perspectives, and ?they help you when you don?t know what to do.? Client also helped group identify barriers to using support. Client shared in the past she had a ?bad habit? of minimizing her struggles and believing that client had to prove her independence by solving problems alone. Client states she now sees how this mindset is toxic to mental health. Appeared to benefit from gaining awareness of barriers that keep people from seeking social support as well as identifying the benefits of increasing support. Client progress noted AEB client?s consistent IOP attendance and engagement in sessions. Will continue IOP tx to prevent decompensation, improve healthy coping skills, and reduce negative thinking that reinforces MH symtpoms. Narrative Note: []
--- NOTE | 2020-02-17 11:54 | PCM.BH.PN_ITS ---
Progress Note Progress Note: History of Present Illness/Interim History: [] Patient is a 39-year-old female who is seen in follow-up at the [facility] IOP program. I last saw the patient 1 week ago and at that time significant changes were made to her medication regimen. The Lexapro was discontinued and the Ativan was discontinued. The Zoloft was increased to 100 mg and that checked patient was changed to Klonopin 0.5 mg twice daily. The patient feels that she is much improved since last week and this also was confirmed by the staff at the IOP program. The patient feels less anxious and is able to sit in groups and feels that she can benefit some from the skills that they are teaching her. Her mood is much better also and she is much less depressed and anxious. She feels actually hopeful lately she says. She denies any thoughts of or any suicidal ideation. She denies homicidal ideation, hallucinations, delusions or juwan. Her sleep is improved to 6 to 7 hours a night now. She is not using any Ativan whatsoever. Current Psychiatric Medications: [] Zoloft 100 mg p.o. daily (x1 week); Klonopin 0.5 mg p.o. twice daily (sometimes she rarely only needs a Contin once a day). Mental Status Examination: [] Patient is a 39-year-old female who appears normal for stated age and is seen wearing a mask due to the pandemic. She is casually dressed and groomed with good hygiene. Eye contact is good and speech is normal rate and rhythm and fluent with no pressure. Mood is depressed but less sad than last week. Affect is constricted. Thought process is goal- directed and organized. Thought content: No evidence of passive thoughts of or suicidal or homicidal ideation. No evidence of hallucinations or delusions. Insight: Some present. Impulsivity: Low. Diagnoses: [] [place] I: [] Major depressive disorder, recurrent, severe without psychosis; panic disorder; history of PTSD [place] II: [] Deferred [place] III: [] Benzodiazepine dependence with withdrawal during weaning (resolving) [place] IV:[]] Primary support, financial and work issues Plan: [] Patient will continue the IOP program at [facility] as the support, structure, education, individual and group therapy will hopefully continue to improve her symptoms and prevent worsening which might require hospitalization. She felt safe during the interview and if it anytime she does not feel safe she will let us know or go to the emergency room. The risk, options, possible complications and side effects of medications were discussed with the patient and she understands and accepts these. The patient will continue the current medication regimen and no med changes were made today. She will continue to follow-up with her outpatient psychiatric and medical providers.
--- NOTE | 2020-02-17 15:14 | BH.MDN ---
Multi-Disciplinary Note - Note 45-min Individual Time Started:: 12:20 Date: 02/17/20 Purpose of session/treatment goals addressed:: The purpose of this session was to address current symptoms, stressors, and anxious thoughts. Another goal was to identify small goals for the week to improve self-care and reduce anxiety. Eye Contact:: Good Motor Activity:: Appropriate Appearance:: Disheveled Speech:: Rambling Mood:: Anxious Affect:: Congruent Thoughts:: Linear, Logical, No evidence of hallucinations/delusions noted Staff Interventions:: Therapist used open-ended questions and active listening while providing a safe space for client to process and verbalize emotions, symptoms, and stressors. Therapist used strengths perspective to help client practice self-compassion and reframing. Therapist and client discussed strategies to reduce client?s stress response and promote self-care. Therapist encouraged client to set a self-care goal for the week. Client Response:: Client responded well to session, receptive to meeting with therapist. Client had a rough day yesterday as client was ruminating and had increased anxiety. Client stated she is doing better today with catching her negative thoughts and trying to combat them. Client has frequent cognitive distortions which hinders client from practicing self-care. Client used to exercise on a regular basis and would like to get back to this. Client and therapist challenged and reframed the thoughts that are currently keeping client from engaging in exercise. Client goal this week is to exercise three times before next week. Risks/Concerns:: Client denies any suicidal ideations, plan, or intent as of 02/17/20. Future oriented and motivated. Progress Toward Goals/Plan:: Client is demonstrating progress towards tx goals AEB increase engagement in sessions and report of practicing healthy coping skills outside of IOP. Client continues to endorse severe anxiety that impacts client's social, familial, and occupational functioning. Endorses panic attacks, constant worrying, and avoidance behaviors. Will continue IOP tx to prevent decompensation, reduce distortions, and increase use of healthy coping skills. Time Stopped:: 13:10
--- NOTE | 2020-02-19 09:05 | BH.SGPN.GN ---
Behaviors/Verbalizations/Mental Status: []Client alert and oriented, casual dress, hygiene tended to. Eye contact good. Motor activity appropriate. Speech within normal limits.Affect congruent, mood anxious and euthymic. Thoughts linear, logical, no signs of hallucinations or delusions. Reviewed client?s symptom tracker, pt denies current suicidal thoughts or intention to date. Client Response/Progress/Benefit: []Patient responded well to session, providing feedback, actively listening and willing to share thoughts and feelings. Patient stated emotion today as ?anxious calm?. She explained often struggling with anxiety in the evenings but was proud as she used healthy coping skills to better manage her anxiety last night. Shared putting on music and dancing while she made dinner which helped her to focus on the moment rather than anxiety producing thoughts. Went on to indicate additional progress in challenging herself to be more engaged in the present moment rather than feeling she has to have something planned all the time. Expressed this as a stressor as she is not used to it but feels confident in overall ability to make progress in this area. Patient seem to benefit from reflecting upon progress to others, as well as support of group environment. Pt continues to struggle with consistent skill application and often becomes easily overwhelmed by external stressors. Recommended continued IOP treatment to further promote application of behavior activations skills, continue to work on depression and anxiety management, as well as prevent decompensation. Narrative Note: []
--- NOTE | 2020-02-19 10:18 | BH.SGPN.GN ---
Behaviors/Verbalizations/Mental Status: []Client alert and oriented, neatly dressed and groomed- dressed up. Eye contact good. Motor activity appropriate. Speech within normal limits. Affect congruent, mood euthymic. Thoughts linear, logical, no signs of hallucinations or delusions. Client Response/Progress/Benefit: []Client active participant as shown by active listening and contributing to discussion. Client contributed to the discussion of self-care and the consequences of not practicing self-care. Client agreed with peers that it is important to practice self-care, but they all struggle with through. Client helped the group discuss consequences of not practicing self-care such as: poor physical health, poor work performance, and poor emotional regulation. Client gave a personal example of a time when she neglected self-care to ?put others first? and it resulted in client feeling mentally and physically ?empty.? Client participated in the discussion of the common myths about self-care. Client participated in the discussion on debunking of these myths. Client?s group challenged the myths that self-care means a person is selfish and it is self-indulgent. Client seemed to benefit from increased awareness of the importance of self-care and challenging common myths that prevent practicing self-care. Will continue IOP tx to reduce negative thinking that reinforces depression and anxiety as well as to improve daily functioning. Narrative Note: []
--- NOTE | 2020-02-19 11:20 | BH.SGPN.GN ---
Behaviors/Verbalizations/Mental Status: []Client alert and oriented, casually dressed, hygiene appeared to be tended to. Eye contact fair. Motor activity appropriate. Speech within normal limits. Affect constricted, mood anxious. Thoughts linear, logical, no signs of hallucinations or delusions. Client Response/Progress/Benefit: []Client engaged participant AEB client providing input during discussions and listened attentively to peers. Participated in some group discussion on the various areas of self-care, benefits, and types of self-care activities for each area. Client completed worksheet in which she identified current self-care practices and what self-care activities she wants to start using. Client reported she will focus on improving her emotional self-care because she struggles with reaching out to others to let them know how she is truly feeling. Client stated she believes this will help because she will not feel alone. Progress noted as client has been able to increase application of healthy coping skills and appears to be less anxious compared to when first our program. Will continue IOP tx to further promote the use of self-care practice, decrease anxiety and prevent decompensation. Narrative Note: []
--- NOTE | 2020-02-23 09:02 | BH.SGPN.GN ---
Behaviors/Verbalizations/Mental Status: []Client alert and oriented, disheveled appearance. Eye contact good. Motor activity appropriate. Speech within normal limits. Affect constricted, mood anxious. Thoughts linear, logical, no signs of hallucinations or delusions. Reviewed client?s symptom tracker, no risk for suicidal ideation, plan, or intent as of 02/23/20. Client Response/Progress/Benefit: []Client responded well to session, attentive and engaged. Client reports feeling anxious but I keep reminding myself it will get better this morning. Client had a rough weekend due to ruminating and feeling lonely. Client stated she turned to social media which only made client feel worse. Client shared she has been using healthy coping skills such as raking leaves, grounding, talking to supports, and positive self-talk. Appeared to benefit from reflecting on generalization of coping skills. Will continue IOP tx to prevent decompensation of anxiety symptoms and improve daily functioning. Narrative Note: []
--- NOTE | 2020-02-23 14:38 | BH.MDN_ITS ---
Multi-Disciplinary Note - Note 45-min Individual Time Started:: 12:09 Date: 02/23/20 Purpose of session/treatment goals addressed:: The purpose of this session was to work on goal #1 of client's tx tplan. Eye Contact:: Good Motor Activity:: Appropriate Appearance:: Disheveled Speech:: Rambling Mood:: Anxious Affect:: Congruent - tearful Thoughts:: Racing, No evidence of hallucinations/delusions noted Staff Interventions:: Therapist taught client coping skills to improve emotional regulation, mindfulness, and distress tolerance to help client cope with anxiety in the moment. Therapist assisted client in identifying, challenging, and replacing dysfunctional thoughts with positive, more realistic thoughts. Therapist used CBT and DBT techniques to help client gain awareness of thinking errors and learn how to more effectively handle negative thoughts. Client Response:: Client responded well to session, open to meeting with therapist. Client reports feeling anxious and has ruminations today. Client shared she often has anxious thoughts about not doing enough for her children and not being good enough. Client struggles with challenging anxious thoughts, especially when client compares herself to others. Client stated when someone gives client advice or feedback, client ruminates and obsessives over it. Client has also been ruminating about her ioana. Client willing to practice thought challenging during session. Client wrote out alternative, more realistic thoughts and reminded herself of mental health wins. Client also reviewed self- soothing strategies such as 5-senses, deep breathing, and affirmations. Dis cussed the benefits of using emotional release, distractions, and thought challenging. Risks/Concerns:: Client denies any suicidal ideations, plan, or intent as of 02/23/20. Progress Toward Goals/Plan:: Client is demonstrating mild progress towards tx goals AEB increase engagement in sessions and report of increased self-awareness of distorted thought patterns. Client continues to endorse severe anxiety that impacts client's ability to function. Client reports constant ruminations and worries that she is not doing enough. Willing to practice thought challenging and self-soothing skills. Will continue IOP tx to prevent decompensation, reduce distortions, and increase use of healthy coping skills. Time Stopped:: 12:53
--- NOTE | 2020-02-24 09:00 | BH.SGPN.GN ---
Behaviors/Verbalizations/Mental Status: []Client alert and oriented, casual dress, hygiene tended to. Eye contact good. Motor activity appropriate, at times appearing restless. Speech within normal limits. Affect congruent, mood anxious. Thoughts linear, logical, no signs of hallucinations or delusions. Reviewed client?s symptom tracker, no signs of suicidal ideation, plan, or intent as of today. Client Response/Progress/Benefit: []Client responded well to session AEB actively listening to others and willingly sharing thoughts and feelings. Client identified emotion today as ?hopeful but anxious?. Explained that she is feeling a little more positive than she had earlier in the week and attributes this to practicing more opposite action rather than avoiding when anxious, journaling more, and continuing to reach out to supports. Client did well to identify current mental health positives which included: spending time drawing with her kids and making dinner. Noted that she is continuing to struggle with not having a set plan for her day as this often leads to anxiety about the unknown. Client however expressed working on sitting with the uncomfortable and allowing herself to remember that it?s okay if she does not have a plan for the day. Appeared to benefit from group structure and support. Progress noted in self-report of improved mood and anxiety management. Recommended continued IOP tx to maintain gains, continue to work on improving anxiety management, and prevent decompensation. Narrative Note: []
--- NOTE | 2020-02-24 10:20 | BH.SGPN.GN ---
Behaviors/Verbalizations/Mental Status: []Client alert and oriented, casually dressed and groomed. Eye contact good. Motor activity appropriate. Speech within normal limits. Affect congruent, mood anxious. Thoughts linear, logical, no signs of hallucinations or delusions. Client Response/Progress/Benefit: [] Client active participant in group AEB providing some input on topic, as well as listening attentively to peers. Group worked together to identify barriers to taking action in their lives which included fear of being seen as broken, lack of resources, comfort zone, fear of the unknown, feeling out of control, and self-stigma. Expressed connecting with fear and [id number] as personal barriers. Group identified that taking action can help benefit mental health by: helping to better engage in daily living, feeling more ?authentic?, setting a healthy example for others, and improving self-confidence. Client identified personal areas to take back control over in life to include: fear of judgement, feeling like she?s not doing enough, and feeling not good enough. Client shared that if she could take control over these things, she would feel less anxious and be able to better advocate for her own mental health needs such as self-care. Benefited from increased awareness of personal areas client wants to improve and benefits to taking action towards mental wellness. Will continue IOP tx to prevent decompensation, continue to promote application of calming/self-soothing skills for reduced anxiety, and increase use of internal coping skills. Narrative Note: []
--- NOTE | 2020-02-24 11:05 | BH.SGPN.GN ---
Behaviors/Verbalizations/Mental Status: []Client alert and oriented, well dressed, hair unkempt. Eye contact good. Motor activity appropriate. Speech within normal limits. Affect congruent, mood anxious. Thoughts linear, logical, no signs of hallucinations or delusions. Client Response/Progress/Benefit: []Client engaged in session AEB listening attentively to others and providing input during discussion. Client did well to participate during the activity in which participants were challenged to eliminate various items through group consensus. Client contributed to discussion of the barriers that occurred during the activity as well as the conflict resolution strategies. Client reported she struggles with decision making, especially when dealing with conflict. Client reviewed the worksheet on ten strategies to cope with conflict and client selected wanting to work on focusing on her needs rather than the opinions of others. Appeared to benefit from learning different strategies to better manage conflict. Progress noted AEB client reporting sitting with her anxiety today rather than leaving IOP. Will continue IOP tx to promote mood stability, reduce intensity of anxiety, and decrease cognitive distortions. Narrative Note: []
--- NOTE | 2020-02-24 12:11 | PCM.BH.PN ---
Progress Note Progress Note: History of Present Illness/Interim History: [] Patient is a 39-year-old female who is seen in follow-up at the [facility] IOP program. I last saw the patient 1 week ago and at that time she was tolerating her recent medication changes fairly well. I was asked to see the patient today as she states that she feels a little groggy sometimes in the mid afternoon. But she says she still gets occasional panic attacks during the day. She is now trying to take 0.25 mg of Klonopin at least once a day instead of the 0.5 mg but she does notice she gets somewhat anxious at times. She was taking some sort of supplement to help with depression and anxiety and does not know the name. Her mood is less depressed but she still has some anxiety although it is a little improved. She just does not like that she feels a little bit groggy. She denies any thoughts of or suicidal ideation. She continues to feel much more hopeful lately. Sleep is still good and she denies any homicidal ideation, hallucinations, delusions or juwan. Current Psychiatric Medications: [] Klonopin 0.25 to 0.5 mg p.o. twice a day (taking a total right now of about 0.5 mg to 0.75 mg of Klonopin daily); Zoloft 100 mg p.o. daily (increased 2 weeks ago) Mental Status Examination: [] Patient is a 39-year-old female who appears normal for stated age and is seen wearing a mask due to the pandemic. She is casually dressed and groomed with good hygiene. Eye contact is good and speech is normal rate and rhythm and fluent with no pressure. Mood is euthymic and affect is mildly constricted, approaching full. Thought process is goal-directed and organized. Thought content: No evidence of suicidal or homicidal ideation or passive thoughts of . No evidence of hallucinations or delusions. Insight: Improving. Impulsivity: Low. Judgment: Intact. Diagnoses: [] Balm I: [] Major depressive disorder, recurrent, severe without psychosis; panic disorder; history of PTSD Balm II: [] Deferred Balm III: [] Benzodiazepine dependence with withdrawal during weaning (resolving) Balm IV:[]] Primary support, financial and work issues Plan: [] Patient will continue the IOP program at [facility] as the support, structure, education, individual and group therapy will hopefully continue to improve her symptoms. She felt safe during the interview and if it anytime she does not feel safe she will let us know or go to the emergency room. The risks, options, possible side effects and complications of the medications were discussed with the patient and she understands and accepts these. Discussed with the patient that these side effects if any from the Zoloft dose increase should subside and she should continue to get more benefit from the Zoloft over the next several weeks to a month. She is not instructed not to take any supplements [id number] while she is taking psychiatric medications.
--- NOTE | 2020-02-26 11:15 | BH.SGPN.GN ---
Behaviors/Verbalizations/Mental Status: []Client alert and oriented, disheveled appearance. Eye contact good. Motor activity restless. Speech within normal limits. Affect constricted, mood anxious. Thoughts linear, logical, no signs of hallucinations or delusions. Client Response/Progress/Benefit: []Client was engaged throughout AEB contribution to discussion. Client reported her comfort zone is isolating at home and ruminating. Client reports wanting to work on getting out of the house and better managing her anxiety. Shared small steps she can take to step out of comfort zone as sitting outside, being active when at home, and practicing positive self-talk. Appeared to benefit from psychoeducation and working with the group to brainstorm strategies to promote growth and get out of one?s comfort zone. Client will continue IOP tx as she has been working on utilizing healthy coping skills, but client?s anxiety and ruminations continue to impair functioning. Narrative Note: []
--- NOTE | 2020-02-26 15:22 | BH.COMM_ITS ---
Communication Note - Communication with Client Communication Note: Client was distressed before process group this morning. Therapist briefly checked-in with client and encouraged client to practice self- soothing coping skills to manage anxiety.
--- NOTE | 2020-02-29 09:05 | BH.SGPN.GN ---
Behaviors/Verbalizations/Mental Status: []Client alert and oriented, casual dress, hygiene tended to. Eye contact fair to good. Motor activity appropriate, struggling with restlessness after sharing. Speech within normal limits. Affect congruent, mood dysthymic and anxious. Thoughts linear, logical, appeared to struggle with intrusive thoughts. No signs of hallucinations or delusions. Reviewed client?s symptom tracker, no signs of suicidal ideation, plan, or intent as of today. Client Response/Progress/Benefit: [] Client responded well to session, actively engaged and willing to process with group. Client identified emotion today as ?anxious?, tearful as she shared with group.? Explained that her weekend had been difficult as it was her ?s birthday. Shared experiencing a mix of emotions and struggling to identify how to best cope. Expressed that she had been initially wanted to ?just isolate? but did well to instead challenge herself to spend time with her sister who is a support > Additionally noted reminding herself that she is allowed to move forward by working on her mental health and begin to allow herself to feel happy again. Shared in the past struggling with guilt associated with her own happiness when confronted with reminders of her ?s suicide. Appeared to benefit from group structure and support, as well as being challenged to identify healthy self-care skills she was able to use over the weekend rather than focusing solely on what had not gone as she had hoped. Progress remains variable as client continues to struggle with intrusive thoughts and reassurance seeking impeding consistent progress. Recommended continued IOP tx to improve application of skills, continue to work on independent anxiety management, and prevent decompensation. Narrative Note: []
--- NOTE | 2020-02-29 10:20 | BH.SGPN.GN ---
Behaviors/Verbalizations/Mental Status: []Client alert and oriented, casually dressed. Eye contact fair to good. Motor activity appropriate. Speech within normal limits. Affect congruent, mood anxious, depressed. Thoughts linear, logical, no signs of hallucinations or delusions. Client Response/Progress/Benefit: []Client engaged throughout session AEB providing input when prompted, remaining attentive throughout, as well as taking notes. Remained a mostly passive participant, however, and at times appeared struggling with intrusive thoughts. Appeared to connect with discussion on crisis development and how unhealthy coping could result in a personal crisis. Group reflected on the importance of having awareness of personal warning signs in order to prevent reaching crisis point. Group identified potential warning signs for crisis and client completed the personal warning signs worksheet. Client identified personal crisis warning signs to include: increased crying, decreased focus, and decreased interest. Client benefited from increasing awareness of what leads to crisis and personal warning signs. Progress remains variable as client continues to struggle with independent application of skills and often relies on others for reassurance in times of distress. Will continue IOP tx to increase consistency of healthy coping and use of thought challenge skills, improve anxiety/stress management, as well as prevent decompensation. Narrative Note: []
--- NOTE | 2020-02-29 13:54 | BH.MDN_ITS ---
Multi-Disciplinary Note - Note 45-min Individual Time Started:: 11:50 Date: 02/29/20 Purpose of session/treatment goals addressed:: The purpose of this session was to work on goal #1 of client's tx plan. Another goal was to increase awareness of safety behaviors. Eye Contact:: Good Motor Activity:: Restless Appearance:: Casual Speech:: Rapid Mood:: Anxious, Dysthymic Affect:: Congruent, Other - mouth twitching at times Thoughts:: Racing, No evidence of hallucinations/delusions noted Staff Interventions:: Therapist reviewed coping skills to improve emotional regulation, mindfulness, and distress tolerance to help client cope with anxiety in the moment. Therapist assisted client in identifying, challenging, and replacing dysfunctional thoughts with positive, more realistic thoughts. Therapist used CBT and DBT techniques to help client gain awareness of thinking errors and learn how to more effectively handle negative thoughts. Therapist provided psychoeducation on safety behaviors to help client gain awareness. Client Response:: Client entered session anxious but was open to meeting with therapist. Client stated she had good moments and really rough moments over the weekend. Client stated, ?I wake up and can?t breathe or I feel foggy and I get really anxious.? Client used healthy coping skills including journaling, exercise, and spending time with a friend. Client recognized that when she is around positive supports client can challenge distortions, but client struggles to on her own. Discussed safety behaviors and client admits that she often seeks reassurance from others to reduce anxiety. Client continues to use distorted thinking such as shoulds, disqualifying the positive, and catastrophizing. Client receptive to learning about intrusive thought and how to let these thoughts pass without giving them value. Client also identified some self- soothing activities she could try today such as listening to music and spending time outside. Risks/Concerns:: Client denies any suicidal ideations, plan, or intent as of 02/29/20. Future oriented. Progress Toward Goals/Plan:: Client is demonstrating mild progress towards tx goals AEB her self-report of reduced depression and increased application of coping skills. However, client continues to endorse severe anxiety that impacts client's ability to function. Client stated she has been feeling ?like I just want to cry? and that she continues to struggle with overcoming intrusive, negative thinking. Will continue IOP tx to prevent decompensation, reduce distortions, and increase use of healthy coping skills. Time Stopped:: 12:31
--- NOTE | 2020-03-02 09:05 | BH.SGPN.GN ---
Behaviors/Verbalizations/Mental Status: [] Eye contact is good. Motor activity is appropriate. Appearance is disheveled. Speech is Appropriate. Mood is anxious. Affect is congruent. Thoughts are linear and logical. No evidence of psychosis. Reviewed daily check in sheet and no reports of suicidal ideations or intent. Client Response/Progress/Benefit: [] Pt participated when prompted. Attentive during group discussions. Emotion for today is anxious. Shared that she had increase anxiety yesterday which was triggered by her phone being broken. This caused numerous what if thoughts, catastrophizing, and ruminating on worst case scenarios. Was able to utilize skills to manage anxiety and thoughts. She went on a drive to distraction and challenged her thoughts which she reports was helpful. More calm today. Productive as well as she worked out this AM and completed some school work. Progress noted. Group was supportive and praised her efforts. Will continue in IOP to maintain gains, prevent decompensation, stabilize mood and medications, and improve functioning. Narrative Note: []
--- NOTE | 2020-03-02 10:20 | BH.SGPN.GN ---
Behaviors/Verbalizations/Mental Status: []Client alert and oriented, neatly dressed and groomed. Eye contact good. Motor activity appropriate. Speech within normal limits. Affect constricted, mood anxious. Thoughts linear, logical, no signs of hallucinations or delusions. Client Response/Progress/Benefit: []Client responded somewhat well to session, attentive during discussion and engaged during the activity, but not contributing to discussion like she usually does. Group reported even though change can be scary, change can be positive. Discussed how change can lead to improved mental health and personal safety. Worked with the group to identify barriers to making change, which included: fear of failure, uncomfortable emotions, and putting others first. Client reporting deciding to come to IOP was a positive change for client. Client participated in the activity where they identified and discussed the emotions related to change. Benefited from increased awareness and understanding of emotions, benefits, and barriers related to change. Progress noted as client has been able to improve in some areas of functioning, but client continues to struggle with intrusive thinking that reinforces anxiety. Will continue IOP tx to promote the use of unhealthy coping skills, increase distress tolerance, and improve functioning. Narrative Note: []
--- NOTE | 2020-03-02 12:31 | PCM.BH.PN ---
Progress Note Progress Note: History of Present Illness/Interim History: [] Patient is a 39-year-old female who is seen at her request at the [facility] IOP program. I last saw the patient 1 week ago and at that time we continued her current medication regiment. She states that she feels that she is getting what she calls intrusive thoughts that she gets stuck on. When asking for more detailed appears these thoughts are thoughts that she is not good enough and that she has trouble not ruminating about this. She is taking her Klonopin still about 0.25 mg p.o. 3 times daily. She states that sometimes she feels a little groggy in the mid afternoon. She is having much less panic attacks. Mood is much less depressed than prior. She denies any suicidal ideation, passive thoughts of , homicidal ideation, hallucinations or delusions. Sleep and appetite are good. Current Psychiatric Medications: [] Klonopin 0.25 mg p.o. up to 3 times a day.; Zoloft 100 mg p.o. daily (dose increased 3 weeks ago) Mental Status Examination: [] Patient is a 39-year-old female who is seen wearing a mask due to the pandemic and appears normal for age. She is casually dressed and groomed with good hygiene. Eye contact is good and speech is normal rate and rhythm and fluent with no pressure. Mood is euthymic and affect is mildly constricted. Thought process is goal-directed and organized. Thought content: No evidence of suicidal or homicidal ideation. No evidence of hallucinations or delusions. There is evidence of negative thinking. Insight: Some present. Impulsivity: Low. Judgment: Intact. Diagnoses: [] [place] I: [] Major depressive disorder, recurrent, severe without psychosis; panic disorder; history of PTSD [place] II: [] Deferred [place] III: [] Benzodiazepine dependence with withdrawal during weaning (resolving [place] IV:[]] Primary support, financial and work issues Plan: [] Patient will continue the IOP program at [facility] as the support, structure, education, individual and group therapy will hopefully prevent worsening of the patient's symptoms. She felt safe during the interview and if it anytime she does not feel safe she will let us know or go to the emergency room. The risk, options, possible side effects and complications of the medications were discussed with the patient and she understands and accepts these. She agrees to increase her dose of Zoloft to 150 mg p.o. daily. She will take 1-1/2 of a 100 mg or 350 mg Zoloft. She has this medication at home. She will continue to follow-up with her outpatient psychiatric and medical providers. She will take the Klonopin only when needed up to 3 times daily.
--- NOTE | 2020-03-04 09:00 | BH.SGPN.GN ---
Behaviors/Verbalizations/Mental Status: []Client alert and oriented, casually dressed. Eye contact fair. Motor activity appropriate. Speech within normal limits. Affect flat, mood anxious. Thoughts linear, logical, no signs of hallucinations or delusions. Reviewed client?s symptom tracker, no risk or plan for suicide ideation as of 03/04/20. Client Response/Progress/Benefit: []Client responded well to session, engaged and participated throughout discussion. Client reported a change in her medicine has caused her to feel ?spaced out? which increases anxiety. Client shared she has been journaling and using opposite action to push herself to complete her goal of doing school work and exercising. Client benefited from group as group members could relate to her experiences and provided positive feedback. Client will continue IOP to increase the use of healthy coping skills, decrease anxiety symptoms, and improve daily functioning. Narrative Note: []
--- NOTE | 2020-03-04 10:05 | BH.SGPN.GN ---
Behaviors/Verbalizations/Mental Status: []Client alert and oriented, casual dress, disheveled. Eye contact fair. Motor activity appropriate. Speech within normal limits. Affect flat, mood anxious. Thoughts linear, logical, no signs of hallucinations or delusions. Client Response/Progress/Benefit: []Client responded well to session, providing feedback to peers and insight to discussion. Engaged during psychoeducation portion reviewing fixed mindset. Client connected with traits of the fixed mindset and worked with group to identify how a fixed mindset can impact our mental health which included: increased distortions, negative self-talk, ruminations, all or nothing thinking, self-fulfilling prophecies, unchanging mindset, and keeps us from accomplishing tasks/goals. Client reported fixed thoughts she encounters are ?I still do not feel good, so treatment is not working? or ?people think I am crazy so why speak?? Client reported her fixed mindset leads to ruminations and isolation. Benefited from group by increasing awareness of how one's mindset impacts mental health. Progress noted AEB client openly shared her fixed mindset to other group members. Client will continue IOP to improve daily functioning, decrease anxiety symptoms, and use healthy coping skills. Narrative Note: []
--- NOTE | 2020-03-04 11:15 | BH.SGPN.GN ---
Behaviors/Verbalizations/Mental Status: [] Client alert and oriented, casually dressed and groomed. Eye contact good. Motor activity appropriate. Speech within normal limits. Affect congruent. mood euthymic and anxious. Thoughts linear, logical, no signs of hallucinations or delusions. Client Response/Progress/Benefit: []Client actively listening and provided input during discussion and taking notes throughout. Client did well to work with group on identifying characteristics and benefits of adopting a growth mindset. Client provided input during activity in which participants helped reframe example fixed thoughts into growth mindset thoughts. Reports that being able to reframe her own thoughts could improve self-confidence and reduce overall anxiety levels. Client worked to apply skills learned to reframe own personal fixed thoughts. Reframed thought of ?I don?t feel better now so this is probably not working? with growth mindset thought of ?Even though I may not feel better right now, I have the skills and can keep working towards improving the way I feel?. Benefitted from discussing benefits of growth mindset and brainstorming strategies for prompting a growth-mindset. Client progress noted in self-report of improved ability to apply thought challenge skills and focus on specific areas in which she is making progress. Will continue IOP tx to continue to promote active thought challenging and skill application as well as improve healthy coping repertoire. Narrative Note: []
--- NOTE | 2020-03-04 13:17 | BH.TPR ---
Treatment Plan Review Date of Admission:: 02/03/20 Date of Treatment Plan Review:: 03/04/20 Admitting Diagnoses:: Major depressive disorder recurrent, severe without psychosis F33.2; panic disorder; history of PTSD Current Diagnoses:: Major depressive disorder, recurrent, severe without psychosis F33.2; panic disorder; history of PTSD Patient's Response to Treatment:: Client has been responding well to treatment and is demonstrating mild progress towards her treatment goals. Client is an active group member who often gives insight to discussion, feedback to peers, and connects the topics to her daily life. Client?s attendance is consistent, and client?s engagement has significantly improved since admission. Client has increased self-awareness of personal warning signs, distortions, and has learned numerous coping skills. Client continues to score high on the DSM-5 for anxiety and depression, but client self-reports improvement with coping through her symptoms. Client has not been to the emergency room for anxiety since 02/06/20. Client will continue IOP tx to reduce the intensity of anxiety symptoms and to promote gains made in using opposite action. Status of Current Problems and Symptoms: Client continues to endorse severe anxiety that impacts client's ability to function. Client stated she has been feeling ?like I just want to cry? and that she continues to struggle with overcoming intrusive, negative thinking. Client worries her medication does not work as effectively as it should. Problem #1 Problem Name:: Pt will reduce anxiety and panic sx while increasing ability to function Status of Goals:: Objective 1- Not complete and in progress. Client has gained awareness of warning signs, triggers, and coping skills. Client?s DSM-5 scores for anxiety remain the same since admission, so there is some progress in preventing decompensation. Objective 2- not complete and in progress. Client has gained awareness of her distorted thought patterns that lead to ruminations. Client has also learned ways to cope with these thoughts. Team Recommendations:: Client encouraged to continue working on this treatment goal as client?s anxiety symptoms continue to score severe on the DSM-5. Client and therapist currently working on self-soothing techniques, thought challenging, and self-care. Problem #2 Problem Name:: Pt. will reduce depressive symptoms, lack of motivation, and hopelessness Status of Goals:: Objective 1- partially complete. Client?s DSM-5 scores for depression have not decreased since admission. Client reported at the beginning of the week that client felt less depressed, however her scores increased. Client does report less isolation and has been more active at home which is progress. Client has learned numerous coping skills to better manage depression and client reports often using journaling, exercise, and opposite action. Objective 2- in progress. Client has gained awareness of distorted thought patterns that reinforce depression, but she struggles to reframe negative thoughts on a consistent basis. Client does well to reframe thoughts when she has help from supports. Team Recommendations:: Client encouraged to continue working on this treatment goal to reinforce healthy coping skills and to reduce depressive symptoms. Client and therapist currently working on reframing negative thoughts, behavioral activation, and positive self-talk.
--- NOTE | 2020-03-07 09:00 | BH.SGPN.GN ---
Behaviors/Verbalizations/Mental Status: []Client alert and oriented, casually dressed. Eye contact fair. Motor activity appropriate. Speech within normal limits. Affect flat, mood anxious and euthymic. Thoughts linear, logical, no signs of hallucinations or delusions. Reviewed client?s symptom tracker, no risk or plan for suicide ideation as of 03/07/20. Client Response/Progress/Benefit: []Client responded well to session, engaged and participated throughout discussion. Client reported feeling ?confident and anxious? as client shared meeting some goals to increase self-confidence and self-image. Client reported feeling anxious to share on social media about her weight loss journey and reminded herself in her journal ?I did this for me.? Client felt empowered and confident that she was able to reframe her negative thoughts and was able to stand up for herself after receiving a disturbing text message. Client benefited from reflecting on her application of coping skills. Progress noted as client worked towards meeting goals and did not fall into old routines of isolating when anxious. Client will continue IOP to improve daily functioning, increase the use of healthy coping skills, and decrease MH symptoms. Narrative Note: []
--- NOTE | 2020-03-07 10:13 | BH.SGPN.GN ---
Behaviors/Verbalizations/Mental Status: []Client alert and oriented, neatly dressed and groomed. Eye contact good. Motor activity appropriate. Speech within normal limits. Affect congruent, mood euthymic. Thoughts linear, logical, no signs of hallucinations or delusions. Client Response/Progress/Benefit: []Client active participant as evidenced by providing input throughout discussion. Client connected with the discussion about how distorted thought patterns can reinforce mental health symptoms and impact relationships. Client reflected on her personal progress with challenging distortions and stated she has been trying to use more positive self-talk. Client noted that she connects with black and white thinking, overgeneralizing, and predicting the future. Client gave an example of a distortion which was ?if I go into that store, they will collar tacker me.? Client reported distortions often lead to self-criticism and avoidance if client does not challenge them. Appeared to benefit from increasing awareness of cognitive distortions and how they can impact emotions and behaviors. Will continue IOP tx to promote use of healthy coping skills and decrease negative thinking that reinforces mental health symptoms. Narrative Note: []
--- NOTE | 2020-03-07 12:36 | PCM.BH.PN ---
Progress Note Progress Note: History of Present Illness/Interim History: [] The patient is a 39-year-old female who is seen in follow-up at the [facility] IOP program. I last saw the patient about 1 week ago. At that time according to the staff the patient had wanted to stop her Zoloft and go back on Lexapro but was afraid to tell me that during the interview. Staff noticed that the patient has been somewhat perseverating on this in the past week or so. She tends to overthink and second-guess herself on everything and has very low confidence. The patient states that she feels very spaced out on the Zoloft and is hard to focus at times. She feels a little out of reality lately on the Zoloft. She does not feel the symptoms are due to her Klonopin. She states that when she feels like she cannot focus she gets very anxious and then she takes the Klonopin and feels better. She continues to have thoughts that she is not good enough. She is having less panic attacks but still some when she takes 0.25 mg of Klonopin up to 3 times a day. The patient is encouraged to take 0.5 mg Klonopin up to 3 times a day if she needs it to prevent panic attacks until the Lexapro gets on board for several weeks. She denies suicidal ideation, passive thoughts of , homicidal ideation, hallucinations or delusions. Sleep and appetite continue to be good. Current Psychiatric Medications: [] Zoloft 150 mg p.o. daily (increased 5 days ago); Klonopin 0.25 mg p.o. up to 3 times a day but she is only taking it 1 in the morning and 1 at bedtime. Mental Status Examination: [] The patient is a 39-year-old female who appears normal for stated age and is casually dressed and groomed with good hygiene. Eye contact is fair to good and speech is normal rate and rhythm and fluent with no pressure. Mood is depressed. Affect is constricted. Thought process is goal-directed and organized. Thought content: Patient has trouble making any decisions and is somewhat intimidated during this interview. The patient confirms however ultimately that she does feel that the Lexapro worked better for her and she would like to go back on it. There is no evidence of suicidal or homicidal ideation, hallucinations or delusions. Impulsivity is low. Judgment is intact. Insight: Improving. Diagnoses: [] [place] I: [] Major depressive disorder, recurrent severe without psychosis; panic disorder; history of PTSD [place] II: [] Deferred [place] III: [] Benzodiazepine dependence with withdrawal during weaning (resolving) [place] IV:[]] Primary support, financial and work issues Plan: [] The patient will continue the IOP program at [facility] as the support, structure, education, individual and group therapy will hopefully prevent worsening of the patient's symptoms. She felt safe during the interview and if it anytime she does not feel safe she will let us know or go to the emergency room. The risks, options, possible side effects and complications of the medications were discussed with the patient and she understands and accepts these. She agrees to stop her Zoloft as she has only been on it for about 3 weeks. She will start Lexapro 10 mg p.o. daily. Prescription was sent in with #30 and 1 refill. She will continue her other medications at the same dose and will take a 0.5 mg Klonopin p.o. twice a day if needed due to panic attacks. She will continue to follow-up with outpatient providers.
--- NOTE | 2020-03-09 09:02 | BH.SGPN.GN ---
Behaviors/Verbalizations/Mental Status: []Client alert and oriented, casual dress, hygiene tended to. Eye contact fair. Motor activity appropriate. Speech within normal limits. Affect constricted, mood anxious and depressed. Thoughts linear, logical, no signs of hallucinations or delusions. Reviewed client?s symptom tracker, pt denies current suicidal thoughts or intention to date. Client Response/Progress/Benefit: []Pt responded well to session AEB pt openly sharing thoughts and feelings and appeared to listen attentively to others. Pt stated yesterday she had a depressing day. Pt reported she didn't want to do anything but sit around. Pt stated she was able to use opposite action by making herself go on a walk and complete school work. Pt shared she is feeling anxious about the holiday because she is ambivalent about going to a family gathering. Pt stated she doesn't want to upset her family but she is also worried about the coronavirus. Pt reported a positive is having her daughter home from college for a month. Pt seemed to benefit from support from peers. Progress noted with pt using healthy coping skills despite having a depressed mood. Pt to continue IOP to continue consistent application of skills, challenge distorted thoughts, and prevent decompensation. Narrative Note: []
--- NOTE | 2020-03-09 10:15 | BH.SGPN.GN ---
Behaviors/Verbalizations/Mental Status: [] Client alert and oriented, casually dressed and groomed. Eye contact good. Motor activity appropriate. Speech within normal limits. Affect congruent, mood euthymic and anxious. Thoughts linear, logical, no signs of hallucinations or delusions. Client Response/Progress/Benefit: []Client was an engaged participant AEB taking notes, providing some input, and attentively listening to peers throughout. Connected with group topic of perspective and the impacts of one?s perspective on mental health. Client shared she feels she is getting better at using a more positive perspective now and further indicated knowing this because she is ?not waking up in panic assuming I?m going to have a bad day?. Client worked with the group to identify how a negative perspective can impact mental health which included: self-fulfilling prophecy, maintain unhealthy mental health cycles, and lead to more negative thinking.?Client contributed as group discussed ways a positive perspective can impact mental health such as: be more willing to keep trying when faced with setbacks, be more open to new experiences and new relationships, as well as improve self-confidence. Client appeared to benefit from increasing understanding of mental health benefits of a positive perspective and potential consequences to progress when perspective is negative. Progress noted in self-report of improved skill application and reduced anxiety. Client will continue IOP tx to prevent decompensation, improve emotional regulation skills, and improve daily functioning. Narrative Note: []
--- NOTE | 2020-03-09 11:17 | BH.SGPN.GN ---
Behaviors/Verbalizations/Mental Status: []Eye contact is good. Motor activity is appropriate. Appearance is casual. Speech is Appropriate. Mood is anxious and euthymic. Affect is congruent. Thoughts are linear and logical. No evidence of psychosis. Client Response/Progress/Benefit: []Client was an active participant in group discussion. Attentive during psychoeducation. Active participant in group discussion on the impact of perspective on how we view ourselves. Client worked with the group to develop a working definition of the term strengths and the importance of recognizing one's strengths. Client was given a worksheet and was asked to [place] at least 3 strengths and client shared ?I circled a lot? which speaks to her progress. Some of client?s strengths included: wisdom, kindness, and gratitude. Group then worked together to identify strategies to remind themselves of their strengths and client selected reflecting on positives from her past as her strategy. Progress noted AEB client?s self-report of improved ability to challenge distortions. Benefited from increased awareness of the role of perspective and strengths in daily mental health wellness. Will continue IOP tx to promote gains and further decrease intensity of symptoms. Narrative Note: []
--- NOTE | 2020-03-09 14:12 | BH.MDN ---
Multi-Disciplinary Note - Note 45-min Individual Time Started:: 12:25 Date: 03/09/20 Purpose of session/treatment goals addressed:: The purpose of this session was to work on goal #1 objective #2 of client's tx plan. Another goal was to complete a decisional balance exercise. Eye Contact:: Good Motor Activity:: Appropriate Appearance:: Casual Speech:: Appropriate Mood:: Euthymic, Anxious Affect:: Congruent Thoughts:: Linear, Logical, No evidence of hallucinations/delusions noted Staff Interventions:: Therapist assisted client in identifying, challenging, and replacing dysfunctional thoughts with positive, more realistic thoughts. Therapist used strengths perspective to empower client on her use of coping skills and progress. Therapist used a decisional balance exercise to help client weigh the pros and cons of a stressor decision. Client Response:: Client responded well to session, open to meeting with therapist. Client reports yesterday she coped with anxious thoughts by dismissing the irrational thoughts and challenging distortions causing guilt and second-guessing. Client stated she is currently anxious about Thanksgiving and is torn about spending time with family or not. Client willing to complete a decisional balance exercise to help client weigh the pros and cons of staying home with her kids or letting her kids go to family Thanksgiving. After weighing and processing the pros and cons, client decided that it would be best to stay home with her kids due to COVID getting worse. Client and therapist reviewed coping skills client can use to manage ruminations after setting the boundary with her kids. Client also identified ways she could make the change in plan fun for her and her children. Client reported feeling better after processing the pros and cons and reviewing healthy coping skills. Risks/Concerns:: Client denies any suicidal ideations, plan, or intent as of 03/09/20. Client is future oriented and motivated. Progress Toward Goals/Plan:: Client reports an improved mood today and is feeling better about managing her symptoms following recent medication change. Client continues to endorse intrusive, ruminating thoughts, but client reports significant improvement with reframing her distorted thoughts. Client currently stressed about Thanksgiving and making decisions that might upset family. Will continue IOP tx to promote use of healthy coping skills, reduce distortions, and improve daily functioning. Time Stopped:: 13:13
--- NOTE | 2020-03-11 09:00 | BH.SGPN.GN ---
Behaviors/Verbalizations/Mental Status: [] Eye contact is good. Motor activity is appropriate. Appearance is disheveled. Speech is Appropriate. Mood is anxious. Affect is congruent. Thoughts are linear and logical. No evidence of psychosis. Reviewed daily check in sheet and no reports of suicidal ideations or intent. Client Response/Progress/Benefit: [] Pt was active participant in group discussion. Provided appropriate feedback to peers. Shared that she went to the grocery store by herself for the first time in 2 months. She reviewed the skills that she used and stated I was a nervous wreck. Group praised her for her efforts. Pt had difficulty stating this was a win as she believes this is something people do everyday. Group challenged those thoughts and reinforced that this was a win. Her holiday was positive and she did cook. States that she is feeling more determined today. Progress noted per pt report. Will continue in IOP to prevent decompensation, stabilize mood, and improve functioning to return to employment. Narrative Note: []
--- NOTE | 2020-03-11 10:15 | BH.SGPN.GN ---
Behaviors/Verbalizations/Mental Status: []Client alert and oriented, casually dressed and appropriately groomed. Eye contact fair to good. Motor activity appropriate. Speech within normal limits. Affect congruent, mood euthymic. Thoughts linear, logical, no signs of hallucinations or delusions. Client Response/Progress/Benefit: []Client engaged during session AEB taking notes, providing input, and listening attentively to others. Client indicated connecting with group topic of goal setting. She worked with peers on defining goals and brainstorming the benefits of goal setting. Benefits included: improved motivation, increased self-confidence, sense of accomplishment, and less stress. Discussed that for her celebrating progress towards goals has helped to improve her confidence in herself and her ability to overcome anxiety when facing setbacks. Contributed as group discussed the barriers that keep people from either setting goals or following through with goals. Client identified personal barriers as: negative thoughts, feeding into anxious thoughts and self-doubt, and avoidance. Client attentive and contributing during psychoeducation on SMART goals. Appeared to benefit from learning the mental health benefits of setting goals using SMART criteria. Progress in client self-report of improved use of opposite action to better manage anxiety sx. Client to continue IOP tx to promote healthy coping, further improve mood stability, and prevent decompensation. Narrative Note: []
--- NOTE | 2020-03-11 11:25 | BH.SGPN.GN ---
Behaviors/Verbalizations/Mental Status: [] Eye contact is good. Motor activity is appropriate. Appearance is disheveled. Speech is Appropriate. Mood is anxious. Affect is congruent. Thoughts are linear and logical. No evidence of psychosis. Client Response/Progress/Benefit: [] Pt was an active participant in group discussions and activities. Along with group members was able to identify barriers during group beach ball activity (over-thinking, environmental restrictions, self-doubt, and what-if thinking) and strategies they utilized to overcome these barriers (communicating, encouraging others). Able to identify a SMART goal for the next week which was Utilize an opposite-action skills once a day for the next week. She was able to identify barriers and obstacles to this goals and strategies to overcome these barriers. Benefited from group by being able to utilize SMART educate to create a goal. Narrative Note: []
--- NOTE | 2020-03-14 09:00 | BH.SGPN.GN ---
Behaviors/Verbalizations/Mental Status: []Client alert and oriented, neatly dressed. Eye contact fair. Motor activity appropriate. Speech within normal limits. Affect constricted, mood anxious and euthymic. Thoughts linear, logical, no signs of hallucinations or delusions. Reviewed client?s symptom tracker, no risk or plan for suicide ideation as of 03/14/20. Client Response/Progress/Benefit: []Client responded well to session, engaged and participated throughout discussion. Client reported a positive check-in as client has been using opposite action and thought challenging to complete group goals. Client has been practicing self-care such as: talking to support, taking baths, dancing, and spending quality time with children. Client reported a stressor is the feeling of not being able to complete all her schoolwork before a deadline. Therapist and group members offered feedback and ideas to challenge client to complete school work with the help of creating a schedule and incorporating school tasks in client?s to-do lists. Progress noted as client reports using healthy coping skills. Client will continue IOP to reduce negative thinking, decrease anxiety and depression, and continue the use of healthy coping skills. Narrative Note: []
--- NOTE | 2020-03-14 10:19 | BH.SGPN.GN ---
Behaviors/Verbalizations/Mental Status: []Client alert and oriented, neatly dressed and groomed-hair down and wearing makeup. Eye contact good. Motor activity appropriate. Speech within normal limits. Affect full, mood euthymic. Thoughts linear, logical, no signs of hallucinations or delusions. Client Response/Progress/Benefit: []Client was an active participant in group discussion and activity. Client agreed with peers that there are internal and external forces in life which impact personal growth. Group worked together to come up with common negative forces in life which can hold them back from growth. These included; cognitive distortions, toxic people, not setting boundaries, and not asking for help. Client shared she used to resist help from others which only caused worsening MH symptoms. Group then worked together to identify common positive forces which help them grow. These included; healthy coping skills, positive support, positive self-talk, and self-care. Client reported positive self-talk and self-compassion have been positive forces in her life. Client reflected on progress since the first-time client did this activity. Benefited AEB increased insight and awareness on the impact of negative and positive forces on mental wellness. Will continue IOP tx to promote gains, further improve daily functioning, and reduce anxious thoughts. Narrative Note: []
== END 2020-03-14 23:59 ==
LOC: BHIOP 09:00
PROVIDERS: PCP Internal Medicine; Referring Provider Psychiatry & Neurology Psychiatry; Visit Provider Psychiatry & Neurology Psychiatry
DX: F33.2 Major depressive disorder, recurrent severe without psychotic features (principal); F41.0 Panic disorder [episodic paroxysmal anxiety]; F43.10 Post-traumatic stress disorder, unspecified; Z79.899 Other long term (current) drug therapy; F15.21 Other stimulant dependence, in remission
CPT/HCPCS: 99213; 99214; H0035; H2012; H2020; 90832; 90834

== ENCOUNTER 2020-03-16 09:00 | Outpatient (RCR) | payer MEDICAID, SELFPAY ==
[2020-03-15 00:37] VITALS: BP 132/85; PULSE 81
--- NOTE | 2020-03-16 09:00 | BH.SGPN.GN ---
Behaviors/Verbalizations/Mental Status: []Client alert and oriented, neatly dressed. Eye contact fair. Motor activity appropriate. Speech within normal limits. Affect congruent, mood euthymic. Thoughts linear, logical, no signs of hallucinations or delusions. Reviewed client?s symptom tracker, no risk or plan for suicide ideation as of 03/16/20. Client Response/Progress/Benefit: []Client responded well to session, engaged and participated throughout discussion. Client reported feeling ?excited? after going to an agency yesterday that reminded her of ?all the things I used to love.? Stated that the increase of self-motivation and determination has allowed her to work harder towards the goal of completing college. Client reported finances during the holiday season as a stressor but has been practicing self-care, reframing negative thoughts, and positive affirmations to relieve stress and anxiety symptoms. Client has spent more quality time with her children and played with them in the snow, which client stated she does not like the snow but was very happy to be a part of it yesterday. Progress noted as client has reframed negative thoughts and has been practicing healthy coping skills. Client will continue IOP to further improve daily functioning. Narrative Note: []
--- NOTE | 2020-03-16 11:11 | BH.SGPN.GN ---
Behaviors/Verbalizations/Mental Status: []Client alert and oriented, neatly dressed and groomed. Eye contact good. Motor activity appropriate. Speech within normal limits. Affect full, mood euthymic. Thoughts linear, logical, no signs of hallucinations or delusions. Client Response/Progress/Benefit: []Client engaged participant as evidenced by client providing input throughout discussion and listening attentively to peers. Client participated in the discussion of how each resiliency component can help increase personal resiliency. Client identified current resiliency traits client currently possesses and how these can continue to help client in treatment. Client identified personal resilience traits to include: making connections, moving towards goals, self-care, and nurturing a positive view of self. Client shared that several weeks ago client would not have been able to name all of these resilience traits, especially positive view of self. Client appeared to benefit from connecting with peers and reflecting on personal growth. Progress noted in client?s self-report of increased confidence and motivation. Client will continue IOP tx to promote mood stability and gains. Narrative Note: []
--- NOTE | 2020-03-16 15:25 | BH.MDN ---
Multi-Disciplinary Note - Note 45-min Individual Time Started:: 12:26 Date: 03/16/20 Purpose of session/treatment goals addressed:: The purpose of this session was to work on goal #1 objective #2 of client's tx plan. Another goal was to review healthy boundaries and self-care. Eye Contact:: Good Motor Activity:: Appropriate Appearance:: Neat Speech:: Appropriate Mood:: Euthymic Affect:: Full - smiling and laughing Thoughts:: Linear, Logical, No evidence of hallucinations/delusions noted Staff Interventions:: Therapist assisted client in identifying, challenging, and replacing dysfunctional thoughts with positive, more realistic thoughts. Therapist used strengths perspective to empower client on her use of coping skills and progress. Therapist reviewed healthy boundaries and self-care which was then used to help client continue to make healthy decisions. Client Response:: Client responded well to session, open to meeting with therapist. Client stated overall she has been coping much better with her mental health symptoms and client's functioning as improved. Client has been exercising, spending time with her children, cooking, completing ADLs, getting back into personal interests, journaling, and using positive self-talk. Client stated she is beginning to feel like her goofy, independent self again. Client shared a current stressor client is anxious about is setting boundaries with her ex-boyfriend. Client feels torn because client feels lonely and craves connection, but client also knows that being in a relationship would potentially impact client's progress in a negative way. This ex-boyfriend has been a trigger for client?s PTSD symptoms and was unhealthy at times. Client reports plan to set a boundary with her ex-boyfriend by asking him to stop talking to client. Client also made a list of reasons why setting this boundary will help client's mental health. Client's list included more time for kids, being able to be independent, healing, and feeling empowered. Risks/Concerns:: Client denies any suicidal ideations, plan, or intent as of 03/16/20. Client is hopeful and motivated for the future. Progress Toward Goals/Plan:: Client presents to [facility] this week with an improved mood and hopeful outlook. Client reports belief she is feeling ?like my goofy self again.? Client is well groomed and has a full affect. Client reports belief her improved mood is due to her application of coping skills and getting back into personal interests. Client continues to endorse ruminations and occasional PTSD symptoms. Client will still get tearful and feel overwhelmed, but client reports she is coping much better. Will continue IOP tx to promote gains and reinforce healthy coping skills. Client and therapist working on establishing individual therapy following IOP discharge. Time Stopped:: 13:17
--- NOTE | 2020-03-18 09:05 | BH.SGPN.GN ---
Behaviors/Verbalizations/Mental Status: [] Eye contact is good. Motor activity is appropriate. Appearance is neat. Speech is Appropriate. Mood is anxious. Affect is congruent. Thoughts are linear and logical. No evidence of psychosis. Reviewed daily check in sheet and no reports of suicidal thoughts. Client Response/Progress/Benefit: [] Pt was an active participant in group discussion. Shared that recently she has been more hypervigilant and fearful due to recent event. Shared that she received several texts yesterday from an unknown man who stated that he was going to come over to her house at 1am and then stated her address. This was scary and also a trauma trigger. Pt was able to utilize recently learned skills to ease distress. Gave examples of affirmations used and thought reframing. Pt states that she was able to push through it and continue to function rather that isolate and ruminate. Progress noted. Benefited from group support, encouragement, and feedback. Will continue in IOP to increase healthy coping and improve functioning. Pt did report that she began to work on resume and is feeling more confident in returning to work. Narrative Note: []
--- NOTE | 2020-03-18 10:15 | BH.SGPN.GN ---
Behaviors/Verbalizations/Mental Status: []Client alert and oriented, casually dressed and groomed. Eye contact good. Motor activity appropriate. Speech within normal limits. Affect congruent, mood euthymic. Thoughts linear, logical, no signs of hallucinations or delusions. Client Response/Progress/Benefit: []Pt engaged participant AEB pt providing input during discussion, completing worksheet and appearing to actively listen to peers. When discussing quote pt stated if we face the anxious thing then we can become more confident over time. Pt reported anxiety can be healthy when it is motivating. Appeared to connect with others during discussion about the positives of anxiety. Pt stated her physical symptoms of anxiety include: Pt stated her physical symptoms of anxiety include: spaced out, dizzy, sweating, shaking, cold chills, difficulty breathing, numb, and sense of urgency. Progress noted with improved mood, decrease panic symptoms, and improved outlook on life. Pt to continue IOP to maintain gains, continue consistent use of healthy coping and prevent decompensation. Narrative Note: []
--- NOTE | 2020-03-18 11:15 | BH.SGPN.GN ---
Behaviors/Verbalizations/Mental Status: []Client alert and oriented, neatly dressed and groomed. Eye contact good. Motor activity appropriate. Speech within normal limits. Affect congruent, mood euthymic and anxious. Thoughts linear, logical, no signs of hallucinations or delusions. Client Response/Progress/Benefit: []Client was an active participant in group discussion and provided insight on group topic. Attentive during psychoeducation on mindfulness coping skills and their impact on her mental health wellness. Practiced deep breathing, meditation, and PMR with group. Client was able to identify self-soothing and mind-based coping skills client wants to incorporate into current coping skill practice. The skills Client chose to practice were singing positive affirmations, music, and using thought reframing when anxious. Appeared to benefit from practicing in the moment coping skills. Progress noted in client?s improved hygiene and mood this week. Will continue IOP tx to promote gains and further improve daily functioning. Narrative Note: []
--- NOTE | 2020-03-22 09:10 | BH.SGPN.GN ---
Behaviors/Verbalizations/Mental Status: [] Eye contact is good. Motor activity is appropriate. Appearance is neat. Speech is Appropriate. Mood is euthymic. Affect is full. Thoughts are linear and logical. No evidence of psychosis. Reviewed daily check in sheet and no reports of suicidal ideations or intent. Client Response/Progress/Benefit: [] Pt was an active participant in group discussion. Emotion for today is Calm and happy. Continues to exercise with support which has helped her mental health. 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 Reports that she is feeling calm today and has noticed herself feeling happier and laughing more lately. She states that she recalls a time in the recent past where she felt like she couldn't see a way out. Feeling hopeless. Proud of the effort that she has put into her self-care and mental health. I have to remind myself that thoughts are just thoughts and not facts. Progress noted per pt report. Benefited from group support, encouragement, and feedback. Will continue in IOP to maintain gains. Narrative Note: []
--- NOTE | 2020-03-22 10:20 | BH.SGPN.GN ---
Behaviors/Verbalizations/Mental Status: []Client alert and oriented, neatly dressed and groomed. Eye contact good. Motor activity appropriate. Speech within normal limits. Affect congruent, mood euthymic. Thoughts linear, logical, no signs of hallucinations or delusions Client Response/Progress/Benefit: []Client was an engaged participant AEB client providing input throughout discussion and listening attentively to others. Client connected with the topic of obstacles and solutions and worked with group to identify common obstacles that keep people stuck. Client shared current reality as being in a better place than when client started IOP, but client reported she continues to struggle with the ?uncontrollables? and ruminations. Client's realistic, desired reality is to get back to the ?people person I once was? and to continue using the healthy coping skills client has learned in IOP. Group discussed common barriers that keep people stuck to include negative thinking, lack of self-forgiveness, and fear of the unknown. Benefited from group as client was able to identify current and desired mental health state and increase awareness of how barriers can impact progress. Client to continue IOP tx to reinforce healthy coping skills and further improve functioning. Narrative Note: []
--- NOTE | 2020-03-22 11:20 | BH.SGPN.GN ---
Behaviors/Verbalizations/Mental Status: []Client alert and oriented, neatly dressed and groomed. Eye contact good. Motor activity appropriate. Speech within normal limits. Affect congruent, mood euthymic. Thoughts linear, logical, no signs of hallucinations or delusions. Client Response/Progress/Benefit: []Client was an active participant in group discussion and activity. Engaged during activity and provided ideas on how to cope with internal barriers that keep clients stuck from moving towards goals. Barriers identified by client included: guilt/shame, self-criticism, and ruminations. Strategies identified for overcoming these barriers included: thought challenging, self-compassion, and positive self-talk. Client reported she wants to work on overcoming her barrier of self-criticism by ?reminding myself that I?m only one person.? Benefited from group by identifying obstacles and solutions to desired reality. Client has been showing progress with applying thought challenging and improved daily functioning. Will continue IOP tx to promote gains and establish aftercare. Narrative Note: []
--- NOTE | 2020-03-23 09:05 | BH.SGPN.GN ---
Behaviors/Verbalizations/Mental Status: [] Eye contact is good. Motor activity is appropriate. Appearance is casual. Speech is Appropriate. Mood is euthymic. Affect is full. Thoughts are linear and logical. No evidence of psychosis. Reviewed daily check in sheet and no reports of suicidal ideations or intent. Client Response/Progress/Benefit: [] Pt was an active participant in group discussion. Provided appropriate feedback to peers. States I'm actually going places by myself. Decreased fear in public. Increased social activities as she is spending more time with friend and exercising regularly. Shared the skills that she is utilizing. Began working [employer] for [employer] which she states she was not able to do consistency in the past due to her panic attacks and anxiety. Continues to work on challenging her negative thoughts. Emotion for today is motivated and excited. Progress noted per pt report. Benefited from group support, encouragement, and feedback. Will continue in IOP to maintain gains. Narrative Note: []
--- NOTE | 2020-03-23 11:15 | BH.SGPN.GN ---
Behaviors/Verbalizations/Mental Status: []Client alert and oriented, casual dress, hygiene tended to. Eye contact good. Motor activity appropriate. speech and tone WNL. Affect congruent, mood euthymic. Thoughts linear, logical, no signs of hallucinations or delusions. Client Response/Progress/Benefit: []Client receptive of session, engaged throughout AEB client participating in discussion, asking questions, and listening to others. Client is seeing a lot of progress which client is proud of and increases client?s engagement. Client completed a worksheet where client identified personal pitfalls impacting mental health progress. Attentive and contributing during group brainstorm of strategies to overcome pitfalls. Client stated she will work on the pitfalls of limited self-compassion and hesitance to trust others. Client stated she will work on these by continuing to practice self-care, volunteering, and using positive self-talk. Benefited from identifying personal pitfalls and strategies to overcome these pitfalls. Progress noted in client?s self-report of improved mood stability and functioning. Client will discharge IOP Saturday, but client can benefit from one more IOP day to reinforce healthy coping skills and establish aftercare. Narrative Note: []
--- NOTE | 2020-03-25 08:13 | BH.AFTERPLAN ---
Aftercare Plan - Demographics Treatment End Date:: 03/25/20 Psychiatrist:: Suzie Zaman Psychiatrist Office #:: [id number] [facility] Therapist:: Lisa Webb Therapist Phone #:: [phone] - Medications Home Medications: Home Medications hydrOXYzine pamoate capsule [Vistaril] 25 mg PO TID PRN PRN #30 cap 02/06/20 Escitalopram Oxalate [Lexapro] 10 mg PO DAILY 30 Days #30 tab 03/07/20 - Plan Details Progress/Aftercare Plan Details:: Emely has made significant strides since starting IOP as shown by her improved mood, increased confidence in her skills, and increased ability to cope with daily stressors. When Emely started IOP she was experiencing significant anxiety and panic attacks. Emely?s anxiety was significantly impacting her functioning at home, work, and socially. Emely was struggling with ruminating thoughts that made her depressed and overwhelmed. Additionally, Emely was experiencing medication withdrawal that was making progress even more challenging, but Emely persisted. Now, Emely can catch and challenge distortions that reinforced anxiety and self-doubt, use healthy coping skills more easily, and she feels more confident in her abilities. Emely can not only accomplish daily tasks, but she is setting goals for herself and looks forward to each day now. Emely self-reports progress in being more excited for life and her future, exercising, being more like her fun-loving self, increased confidence and self-compassion, increased socializing, and being a problem-solver. Emely was highly active in both group and individual therapy sessions. Emely contributed to group discussions, offered emotional support to peers, and consistently followed through with her individual goals. In individual sessions, Emely was receptive to feedback, consistent with homework, and willing to push herself despite anxiety. Emely?s high motivation, willingness to be uncomfortable, and joyful personality were likely the reason for her significant progress. Emely plans to follow up with aftercare at [facility] and is established with services at [facility] and [facility]. Strategies for Success:: 1. Keep up with journaling! 2. Thought challenging- remember not to let those distortions get the best of you or make you feel down on yourself. You are in control! 3. Affirmations! Keep up the awesome work with writing and saying positive affirmations to yourself. 4. Exercise! 5. Socialize! Keep reaching out to healthy supports and being your goofy awesome self. 6. Self-compassion!!! YOU are worthy of the love you so freely give others! Give yourself credit and be kind during setbacks. 7. Self-care! Keep up with therapy, meds, self-love, and coping skills. 8. Reflect on where you've come and remember how resilient you have been. 9. Remember to set SMART goals and take baby steps. 10. Be proud of how far you've come!! Great work! - Appointments Appointments/Referrals to Other Services:: 1. Follow up with psychiatry at [facility] with Dr. Kendrick on 04/22/20 at 3:30pm. Remember to be there 30 minutes early. 2. Follow up with [facility] aftercare start date TBD either 03/31/20 or 04/14/20 from 2:00-3:30pm. 3. Follow up with Kassy De Jesus on 03/30/20.
--- NOTE | 2020-03-25 08:44 | BH.DS_ITS ---
Discharge Summary - Demographics Date of Admission:: 02/02/20 Discharge Date: 03/25/20 Presenting Problems at Admission:: Client is a 39-year-old female with a history of PTSD and SU. Client was referred to IOP after several ER visits for anxiety at [facility]. Client reported worsening anxiety since 10/2019 related to psychosocial stressors and trauma triggers. Prior to admission, client?s medication was changed, and client?s PCP was attempting to joel client off of Ativan which was causing increased anxiety. At admission, client endorsed daily panic attacks, restlessness, shaking, ruminations, nausea, and constant worries. Client also endorsed a depressed mood, hopelessness, poor appetite, poor sleep, low energy, low motivation, and isolative behaviors. Client reported passive wishes of ?because I won?t want to feel this way.? At admission, client?s symptoms were interfering with her ability to work, take care of herself, and impacting her relationships. 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 Client no longer meets criteria for [facility] level of care and will transition to outpatient counseling and [facility] aftercare. - Treatment Progress During Treatment & Response: Client responded well to treatment as shown by her overall consistent attendance, active participation, and significant reduction of overall DSM-5 symptoms. Client experienced a setback and regression of symptoms approximately usp through IOP, but client was able to bounce back and demonstrate significant progress. Client was an active participate who frequently contributed to discussions, gave insightful feedback, and took notes. Client often connected with peers and provided supportive statements and ideas to promote the use of coping skills. In individual sessions, client was receptive to learning new coping skills and was engaged in her treatment. Client followed through with her homework which often involved client sitting with uncomfortable emotions and practicing thought challenging. Client self-identified her progress as increased self-compassion, increased self-love and confidence, consistent use of healthy coping skills, and reduced intensity of anxiety and depression. At discharge, client?s DSM-5 symptom scores decreased by 40%. Client?s DSM-5 scores for depression decreased by 33% and anxiety decreased by 64%. Additionally, at discharge client reported better outlook on life and optimism about her future. Issues Still to be Addressed:: Client can benefit from ongoing mental health counseling to reinforce healthy coping skills and process trauma. Client would like to further improve her coping skills, management of depression and anxiety symptoms, and thought challenging. Client can also benefit from ongoing work on increasing self-compassion and finding a job. Discharge Recommendations/Instructions:: Client is recommended to follow up with [facility] for medication management. Client has an appointment with Dr. Kendrick on 04/22/20. Client plans to receive outpatient counseling at [facility] and will see Kassy Esteves on 03/30/20. Lastly, client will participate in IOP aftercare group starting this month. Discharge Handout: Complete Discharge Handout with client on aftercare options and continuity of care.
--- NOTE | 2020-03-25 09:05 | BH.SGPN.GN ---
Behaviors/Verbalizations/Mental Status: [] Eye contact is good. Motor activity is appropriate. Appearance is casual. Speech is Appropriate. Mood is anxious. Affect is congruent. Thoughts are linear and logical. No evidence of psychosis. Reviewed daily check in sheet and no reports of suicidal thoughts. Client Response/Progress/Benefit: [] Pt was an active participant in group discussion. Attentive. Shared that she is anxious today b/c this is her last day in [facility]. Reviewed her progress in [facility] from the first day when she was having panic attacks and didn't feel like she could continue with the program to this last week when she reports increased skills, confidence, and stable mood. She thanked group members as well as staff. Also discussed her aftercare plans. Progress noted. Will be discharged from [facility] today. Narrative Note: []
--- NOTE | 2020-03-25 11:20 | BH.SGPN.GN ---
Behaviors/Verbalizations/Mental Status: []Client alert and oriented, neatly dressed and groomed. Eye contact good. Motor activity appropriate. Speech within normal limits. Affect congruent, mood euthymic and anxious. Thoughts linear, logical, no signs of hallucinations or delusions. Client Response/Progress/Benefit: []Client engaged in session AEB listening attentively to others, providing input, and taking notes throughout. Client remained attentive during discussion about the 4 A's of managing stress and discussed connecting with the various benefits of each. Client reported she would like to work on the strategies of accepting the stressors in client?s ?stress jar? and adapting expectations. Client shared she wants to adapt a more realistic expectation for accomplishing schoolwork and to accept that reaching goals is a process. Client seemed to benefit from increased awareness of the impact of stress on mental health and increasing repertoire of stress management strategies. Client has made significant progress and will discharge from IOP today. Client will transition to outpatient counseling and IOP aftercare. Narrative Note: []
--- NOTE | 2020-03-25 14:07 | BH.MDN ---
Multi-Disciplinary Note - Note 30-min Individual Time Started:: 12:15 Date: 03/25/20 Purpose of session/treatment goals addressed:: The purpose of this session was to review client's progress and review strategies that will promote mood stability and gains made in IOP. Another goal was to discuss discharge recommendations and process any current stressors. Eye Contact:: Good Motor Activity:: Appropriate Appearance:: Neat Speech:: Appropriate Mood:: Euthymic, Anxious Affect:: Congruent Thoughts:: Linear, Logical, No evidence of hallucinations/delusions noted Staff Interventions:: Therapist used open-ended questions to explore client's thoughts on personal progress. Therapist also provided emotional support and helped client problem-solve current stressors. Therapist reviewed supports and coping skills with client to promote gains and prevent setbacks. Therapist discussed aftercare plan with client and used strengths-perspective to empower client on the goals client has accomplished. Therapist discussed the benefits of ongoing maintenance and use of daily coping skills. Therapist gave client a quote collage for closure. Client Response:: Client responded well to session, open to meeting with therapist. Client reports feeling ?emotional? about leaving as client has felt safe and supported in IOP, but stated she has more confidence in her skills now and keeps reminding herself ?I can do this.? Client also acknowledges that she has external supports as well who can help client including IOP aftercare, outpatient counseling, and her family. Client reflected on her progress during IOP and reported that she has noticed increased self-compassion, increased self-love and confidence, consistent use of healthy coping skills, and reduced intensity of anxiety and depression. Client has also been more outgoing, exercising, and consistently completing ADLs. Client self-identified healthy coping skills that have helped client which included: challenging negative thoughts, affirmations, journaling, reaching out to supports, and creating daily to-do lists. Client expressed gratitude for the IOP program and reflected on how much she has progressed since admission. Risks/Concerns:: Client denies any suicidal ideations, plan, or intent as of 03/25/20. Progress Toward Goals/Plan:: Client has responded well to treatment and has made great progress while in IOP AEB her DSM-5 score reduction and self-report. Client self-reports overall improved mood, reduced severity of symptoms, improved functioning, and increased self-confidence. Client reports increased ability to manage her emotions and challenge negative thoughts and improved self-compassion. Client still endorses mild anxiety and depression, but she reports increased confidence to manage these symptoms and has hope for the future. Client will discharge IOP and transition to outpatient counseling at [facility]. Client will also participate in [facility] aftercare and receive psychiatric services at [facility]. Time Stopped:: 12:45
== END 2020-03-25 16:03 | disposition home or self-care (01) ==
LOC: BHIOP 09:00
PROVIDERS: PCP Internal Medicine; Referring Provider Psychiatry & Neurology Psychiatry; Visit Provider Psychiatry & Neurology Psychiatry
DX: F33.0 Major depressive disorder, recurrent, mild (principal); F41.0 Panic disorder [episodic paroxysmal anxiety]; F43.10 Post-traumatic stress disorder, unspecified; Z79.899 Other long term (current) drug therapy
CPT/HCPCS: H0035; H2020; 90832; 90834

== ENCOUNTER 2020-03-31 13:55 | Outpatient (RCR) | payer MEDICAID, SELFPAY ==
--- NOTE | 2020-03-31 14:00 | BH.SGPN.GN ---
Behaviors/Verbalizations/Mental Status: []Client alert and oriented, casually dressed and groomed. Eye contact good. Motor activity appropriate. Speech within normal limits. Affect constricted, mood anxious and euthymic. Thoughts linear, logical, no signs of hallucinations or delusions. Client Response/Progress/Benefit: []Client responded well to session, first day of aftercare group. Client shared she was feeling anxious about going from three days of IOP to less intensive care, but client was able to remind herself of progress and strengths which reduced anxiety. Client has been working, exercising, and continues to use healthy coping skills gained in IOP. Client engaged well during the discussion of the components of self-compassion. Client connected with the benefits of self-compassion and agreed with peers that it is easier to be compassionate with others. Client participated in the activity of reframing a recent setback using self-compassion. Client used the example of not meeting her deadline for school. Client reframed this situation using self-compassion and stated, ?I can always do my classes next year and this doesn?t make me a failure.? Client appeared to benefit from practicing self-compassion and connecting with peers. Will continue aftercare to promote mood stability and reinforce healthy coping skills. Narrative Note: []
--- NOTE | 2020-03-31 14:20 | BH.MTP ---
Master Treatment Plan - Patient Information Program Physician:: Dr. Suzie Zaman Primary Therapist:: Lisa Webb - Psychiatric Diagnoses Psychiatric Diagnoses:: Major depressive disorder recurrent, mild without psychosis; panic disorder; history of PTSD Diagnosis Code(s):: F33.0 - Estimated LOS Estimated LOS (in weeks):: 12 Problem/Goal #1 - Problem/Goal #1 Stated Goal:: client will maintain or see a reduction in symptoms AEB client score on the DSM 5 cross-cutting measure and improve client's daily functioning. - Objectives Objective #1 Stated Objective: Client will continue to consistently apply healthy coping skills to maintain progress made in IOP tx. Interventions: Through group therapy, client will review warning signs and triggers as well as healthy coping skills learned in IOP tx to successfully maintain gains while transitioning into outpatient therapy. Discharge Criteria: Client will have accomplished this goal when client's score on the DSM-5 cross-cutting measure has either maintained or reduced over a 12 week period. Target Date: 06/23/20 Review Date: 04/28/20 Objective #2 Stated Objective: Client will learn and utilize 2-3 maintenance strategies to prevent decompensation. Interventions: Through group therapy, client will be provided with education on healthy maintenance behaviors, relapse prevention techniques, and healthy coping strategies. Discharge Criteria: Client will have accomplised this goal when can report using at least 2 maintenance skills to prevent decompensation. Target Date: 06/23/20 Review Date: 04/28/20
== END 2020-04-14 23:59 ==
LOC: BHOG 13:55
PROVIDERS: PCP Internal Medicine; Referring Provider Psychiatry & Neurology Psychiatry; Visit Provider Psychiatry & Neurology Psychiatry
DX: F33.0 Major depressive disorder, recurrent, mild (principal); F41.0 Panic disorder [episodic paroxysmal anxiety]; F43.10 Post-traumatic stress disorder, unspecified
CPT/HCPCS: 90853

== ENCOUNTER 2020-04-21 13:57 | Outpatient (RCR) | payer MEDICAID, SELFPAY ==
--- NOTE | 2020-04-21 14:00 | BH.SGPN.GN ---
Behaviors/Verbalizations/Mental Status: []Client alert and oriented, neatly dressed and groomed. Eye contact good. Motor activity appropriate. Speech within normal limits. Affect congruent, euthymic and anxious. Thoughts linear, logical, no signs of hallucinations or delusions. Client Response/Progress/Benefit: []Client responded well to session, actively contributing. Client shared the past week has been stressful because client has been having car troubles, but client reports feeling proud of herself for how client is handling the situation. Client has been avoiding social media, reframing negative thoughts, and positive self-talk to cope with symptoms and stressors this week. Client contributed to the discussion on gratitude and its benefits. Client attentive during discussion of internal vs. external gratitude. Client receptive to participating in the group seven-day gratitude challenge. Client selected one gratitude reflection per day and stated she will implement this through writing in her journal in the mornings before her children get up for the day. Receptive to discussion on intentionality and self-accountability. Appeared to benefit from connecting with peers and practicing gratitude. Will continue IOP tx promote mood stability and reinforce healthy coping skills. Narrative Note: []
--- NOTE | 2020-04-28 14:00 | BH.SGPN.GN ---
Behaviors/Verbalizations/Mental Status: []Client alert and oriented, casual appearance. Eye contact good. Motor activity appropriate. Speech within normal limits. Affect congruent. Mood euthymic. Thoughts linear, logical, no signs of hallucinations or delusions. Client Response/Progress/Benefit: []Pt engaged in session as evidenced by pt openly sharing thoughts and feelings, listening attentively to others, and providing input throughout. Pt reported she appreciates that she was able to finally get her car fixed by asking for support. Pt stated she realized if she gives herself time to think then she is better suited to overcome the situation. Pt engaged in discussion about benefits of self-care. Pt stated for her self-care plan for the week she will engage in: exercise, eating healthy, more time away from phone, reading self-help books, positive affirmations, and reaching out to others. Pt seemed to benefit from creating a self-care plan to increase consistent use of self-care. Progress noted with pt reporting consistent use of healthy coping skills and challenging distorted thoughts. Pt to continue aftercare group to continue use of healthy coping and prevent decompensation. Narrative Note: []
--- NOTE | 2020-05-05 14:00 | BH.SGPN.GN ---
Behaviors/Verbalizations/Mental Status: []Client alert and oriented, neatly dressed and groomed. Eye contact good. Motor activity appropriate. Speech within normal limits. Affect congruent, mood euthymic. Thoughts linear, logical, no signs of hallucinations or delusions. Client Response/Progress/Benefit: []Client responded well to session, provided input, and listened attentively to peers. Reported feeling ?calm? today as client has been working on maintenance and self-care. Client reports ongoing use of affirmations, opposite action, and exercise. Client reports a stressor with a friend, but client?s goal is to set boundaries this week. Client engaged in discussion on self-advocacy. Worked with group to identify the benefits of self-advocacy, as well as common barriers. Reviewed the personal bill of rights and shared belief that she has the right to say no to anything if she feels it is unsafe or conflicts with her values. Worked with group to identify strategies to increase ability to advocate for oneself. Reported she wants to work on advocating for herself by reminding herself that she has the right to say no to demands she cannot meet. Client seemed to benefit from reviewing treatment progress and skill application, as well as learning about how to increase self-advocacy. Client to continue aftercare to promote gains and further improve functioning. Narrative Note: []
--- NOTE | 2020-05-05 15:02 | BH.MTP_ITS ---
Treatment Plan Review Date of Admission:: 03/31/21 Date of Treatment Plan Review:: 05/05/20 Admitting Diagnoses:: F33,0 Major depressive disorder recurrent, mild without psychosis; panic disorder; history of PTSD Current Diagnoses:: F33,0 Major depressive disorder recurrent, mild without psychosis; panic disorder; history of PTSD Patient's Response to Treatment:: Pt responding well to treatment AEB pt consistently attending sessions, actively engaged in group discussions, and reporting use of skills outside treatment environment. Status of Current Problems and Symptoms: Pt reporting increased anxiety due to being stressed about needing to set boundaries with a friend. Pt reports continued difficulty with setting boundaries. Pt continues to report daily anxiety and ruminations but does report feeling better able to manage anxiety. Pt has been faced with various stressors in the last few weeks but reports after some time able to manage the stressor by using healthy skills. Problem #1 Problem Name:: Pt will maintain or see a reduction in sx AEB client score on the DSM-5 Status of Goals:: Objective 1- Needs continued work. Client?s scores on the DSM- 5 for depression have maintained since IOP discharge. Client?s anxiety scores have increased slightly since IOP discharge, but still remains in the slight range. Overall, client?s DSM-5 scores have slightly increased since IOP discharge. Objective 2- complete with ongoing work encouraged. Client has been consistently reporting use of opposite action, thought reframe, positive affirmations, and positive self-talk Team Recommendations:: Recommended client continue IOP aftercare group in addition to attending regular outpatient counseling in order to maintain gains.
== END 2020-05-15 23:59 ==
LOC: BHOG 13:57
PROVIDERS: PCP Internal Medicine; Referring Provider Psychiatry & Neurology Psychiatry; Visit Provider Psychiatry & Neurology Psychiatry
DX: F33.0 Major depressive disorder, recurrent, mild (principal); F41.0 Panic disorder [episodic paroxysmal anxiety]; F43.10 Post-traumatic stress disorder, unspecified
CPT/HCPCS: 90853

== ENCOUNTER 2020-05-26 14:00 | Outpatient (RCR) | payer MEDICAID, SELFPAY ==
--- NOTE | 2020-05-12 02:05 | BH.SGPN.GN ---
Behaviors/Verbalizations/Mental Status: []Client alert and oriented, casually dressed and groomed. Eye contact good. Motor activity appropriate. Speech within normal limits. Affect congruent, mood euthymic. Thoughts linear and logical. No signs of hallucinations or delusions. Client Response/Progress/Benefit: []Client responded well to session, checked in using her GAPs worksheet. Client reported feeling ?proud? as she was able to control her reactions to a stressful situation. Identified healthy coping skills as having empathy for others, remaining a positive attitude, thought-reframing, self-advocacy, and healthy communication to help accomplish her goal. Client engaged well during discussion of social support and noted benefits of different types of social support. Client appeared to benefit from psychoeducation on the four types of social support. Client was engaged as they contributed to how one may build social support. Identified her goal for the week was to increase her tangible support by making phone calls she has been avoiding. Will continue aftercare IOP to challenge negative thoughts and continue the use of healthy coping skills. Narrative Note: []
--- NOTE | 2020-05-26 14:00 | BH.SGPN.GN ---
Behaviors/Verbalizations/Mental Status: []Client alert and oriented, neatly dressed and groomed. Eye contact good. Speech within normal limits. Motor activity appropriate. Affect congruent-tearful. Mood overwhelmed. Thoughts linear, logical, no signs of hallucinations or delusions. Client Response/Progress/Benefit: []Pt reports feeling overwhelmed and sad today. Pt shared it's been a rough week as pt had a grief trigger, her son is moving out, and pt forgot to take her medications for a few days. Pt was receptive to supportive feedback and pt stated she has been using healthy coping skills to manage her emotions. Pt worked cooperatively with group to identify benefits of having a daily routine which included: improving sense of purpose, increasing productivity, and improve memory. Pt engaged in brainstorming of various daily routine ideas. Pt completed task of creating a daily routine and identifying a supportive mantra. Pt selected the mantra I will take it one day at a time. Pt seemed to benefit from support from peers and learning about benefits of routine. Pt has made progress and has overall been reporting mood stability, however, pt reports a regression this week which is a part of progress. Pt to continue aftercare group to improve consistent use of healthy coping, maintain gains, and prevent decompensation. Narrative Note: []
--- NOTE | 2020-06-02 02:05 | BH.SGPN.GN ---
Behaviors/Verbalizations/Mental Status: []Client alert and oriented, casually dressed and groomed. Eye contact good. Motor activity appropriate. Speech within normal limits. Affect congruent, mood euthymic. Thoughts linear, logical, no signs of hallucinations or delusions. Client Response/Progress/Benefit: []Client was receptive of session, engaged throughout. Notes feeling ?peaceful? as feeling better since last session. Reported her stressor as feeling ?negative and low? throughout the week due to missing medications but reports using healthy coping skills like reading encouraging books, making affirmations, talking to supports, practicing yoga, and walking. Receptive of discussion on personal accountability and its importance in maintaining mental health stability. Client worked cooperatively with group to identify benefits of maintaining personal accountability. Engaged in discussion and asked questions on different accountability styles and brainstorming strategies for improving ability to hold themselves accountable. Client identified her accountability style as visual and reported she would hold herself accountable by monitoring her food and tracking her health progress. Seemed to benefit from support from peers and increasing understanding of personal accountability benefits and strategies. Progress noted as client increased her self-awareness of accountability and discussed personal progress with peers. Will continue IOP aftercare group to continue the use of healthy coping skills. Narrative Note: []
--- NOTE | 2020-06-09 02:00 | BH.SGPN.GN ---
Behaviors/Verbalizations/Mental Status: []Client alert and oriented, casually dressed, hygiene tended to. Eye contact good. Motor activity appropriate. Speech within normal limits. Affect congruent, mood euthymic. Thoughts linear, logical, no signs of hallucinations or delusions. Client Response/Progress/Benefit: []Client responded well to session, attentive and engaged throughout. Reported working on gameplan from last week to improve healthy eating habits as it helps increase self-confidence. Shared personal positives and stressors and identified healthy coping skills to decrease stressors such as increasing work hours, listening to calming music, breathing exercises, and not catastrophizing. Client reported feeling ?proud of self? after driving alone to a doctor?s office which provoked anxiety. Contributed to discussion of personal barriers and strategies to improve healthy decisions. Client reported she would like to work on eating healthier by writing down consequences to increase motivation. Appeared to benefit from reflecting on application of coping skills, identifying barriers, and creating a game plan to improve healthy decision-making skills. Will continue IOP aftercare to continue the use of healthy coping skills and challenge negative thoughts. Narrative Note: []
--- NOTE | 2020-06-09 15:25 | BH.TPR ---
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 Status of Current Problems and Symptoms: Pt continues to report daily anxiety and ruminations but does report feeling better able to manage anxiety. Pt has been faced with various stressors in the last few weeks but reports after some time able to manage the stressor by using healthy skills. Pt reported in group on 05/26/20 that she forgot to take her medications for a few days, which led to worsening anxiety and depression. Pt has been reporting an improved mood since getting back on track with her meds. Problem #1 Problem Name:: Pt will maintain or see a reduction in sx AEB client score on the DSM-5 Status of Goals:: Objective 1- partially complete, ongoing work encouraged. Pt's scores on the DSM-5 for depression have maintained since IOP discharge. Client?s anxiety scores are still increased from IOP discharge, but they have maintained since last tx plan review. Anxiety scores still remain in the slight-mild range. Overall, pt's DSM-5 scores have decreased since last tx plan review. Objective 2- complete with ongoing work encouraged. pt has been consistently reporting use of opposite action, thought reframing, spending time with supports, exercising, positive affirmations, and positive self-talk Team Recommendations:: Recommended client continue IOP aftercare group in addition to attending regular outpatient counseling in order to maintain gains.
== END 2020-06-12 23:59 ==
LOC: BHOG 14:00
PROVIDERS: PCP Internal Medicine; Referring Provider Psychiatry & Neurology Psychiatry; Visit Provider Psychiatry & Neurology Psychiatry
DX: F33.0 Major depressive disorder, recurrent, mild (principal); F41.0 Panic disorder [episodic paroxysmal anxiety]; F43.10 Post-traumatic stress disorder, unspecified
CPT/HCPCS: 90853

== ENCOUNTER 2020-06-16 14:00 | Outpatient (RCR) | payer MEDICAID, SELFPAY ==
--- NOTE | 2020-06-16 14:00 | BH.SGPN.GN ---
Behaviors/Verbalizations/Mental Status: []Client alert and oriented, neatly dressed and groomed. Eye contact good. Motor activity appropriate. Speech within normal limits. Affect congruent, mood anxious. Thoughts linear, logical, no signs of hallucinations or delusions. Client Response/Progress/Benefit: []Pt responded well to session AEB pt providing input during discussion and listening attentively to peers. Pt reported today she faced a significant trauma trigger which triggered a panic attack. Pt shared that even though it ?took me a little while? pt was able to use grounding and other calming skills to regulate her emotions. Pt stated she has been using self-talk, exercise, calming skills, and reaching out to support to maintain mood stability. Pt engaged in discussion about self-love. Connected with others that although self-care is challenging, it is vital for mental health wellness. Group discussed barriers they have faced that prevented self-love. Pt worked with group to identify strategies to increase self-love. Pt reported she wants to work on self-love by reading an affirmation that reminds client to stop comparing herself to others. Pt seemed to benefit from reviewing treatment progress and stressors as well as learning about how to increase self-love. Pt to continue aftercare program to maintain treatment progress, continue use of healthy coping, and prevent decompensation. Narrative Note: []
--- NOTE | 2020-06-23 14:00 | BH.SGPN.GN ---
Behaviors/Verbalizations/Mental Status: []Client alert and oriented, casually dressed and groomed. Eye contact good. Motor activity appropriate. Speech within normal limits. Affect congruent, mood anxious. Thoughts linear, logical, no signs of hallucinations or delusions. Client Response/Progress/Benefit: []Client responded well to session, checked in using GAPS. Client?s emotion today is ?anxious? as she identified struggling to communicate her concerns and set a boundary with a friend regarding their plans for an upcoming vacation. Notes fear in disappointing her friend but did well to challenge this barrier. Client reported multiple wins including continuing to go to the gym which is a major form of self-care for her, as well as making plans to speak with her friend about these concerns rather than continuing to avoid it. Client states using thought challenging, going to the gym, opposite action, and affirmations to cope with daily stressors. Receptive of discussion on self-talk and its influence in maintaining long-term mental health stability. Contributed to strategies for improving effective creation and application of believable personal affirmations. Client?s affirmational statements were ?I have worth and value as an individual? and ?I am capable of setting boundaries?. Client to continue aftercare group to promote gains and further increase application of healthy coping skills. Narrative Note: []
--- NOTE | 2020-06-30 14:00 | BH.SGPN.GN ---
Behaviors/Verbalizations/Mental Status: []Client alert and oriented, casual in appearance. Eye contact good. Motor activity appropriate. Speech within normal limits. Affect congruent. Mood euthymic. Thoughts linear, logical, no signs of hallucinations or delusions. Client Response/Progress/Benefit: []Pt responded well to session AEB pt providing input throughout session, listening attentively to peers and completed worksheet. Pt stated she has followed through with homework from last session by saying positive affirmations daily. Pt identified mental health positive as making a decision to go to [place] after talking to her friends instead of making assumptions. Pt reported additional mental health positives as opening up to a friend about her mental health and signing up for college classes. Pt providing input during discussion about self-reflection. During self-reflection activity pt identified progress as using skills more consistently, improved follow through and increased self-confidence. Pt to continue aftercare to maintain gains and prevent decompensation. Narrative Note: []
--- NOTE | 2020-07-07 14:00 | BH.SGPN.GN ---
Behaviors/Verbalizations/Mental Status: []Client alert and oriented, casually dressed and groomed. Eye contact good. Motor activity appropriate. Speech within normal limits. Affect congruent. mood anxious and euthymic. Thoughts linear and logical. No signs of hallucinations or delusions. Client Response/Progress/Benefit: []Client responded well to session. Client?s last day of [facility] aftercare and client reports feeling ?anxious but confident? today. Client reflected on her growth and shared ?being open and vulnerable has been very powerful for me.? Client stated she wants to continue working on improving her mental health which could include moving soon. Client shared an ongoing stressor will be managing her negative thinking and trauma responses, but client reports feeling more equipped to do so. Client engaged well during the discussion of self-compassion. Noted connecting with the benefits of self-compassion and shared that for her self-compassion is ?recognizing how freaking awesome you are.? Client appeared to benefit from psychoeducation on the three elements of self-compassion and debunking common myths about self-compassion. Client practiced using self-compassion by reframing a recent setback using the three components of self-compassion. Will discharge from [facility] aftercare today as client has accomplished her goals. Narrative Note: []
--- NOTE | 2020-07-07 15:16 | BH.DS ---
Discharge Summary - Demographics Date of Admission:: 03/31/21 Discharge Date: 07/07/20 Presenting Problems at Admission:: Client discharged from IOP tx and transitioned to IOP aftercare to maintain gains client made in IOP and to reinforce healthy coping skills. At admission to IOP aftercare, client was still reporting mild symptoms of depression and anxiety. Client was also working on weaning off Klonopin. Client was experiencing life stressors including childcare, PTSD triggers, grief triggers, boundaries, and school. Despite these stressors, client reported ability to cope with her mental health and was activity using healthy skills. 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 Client will transition to traditional outpatient counseling. - Treatment Progress During Treatment & Response: Client was engaged in IOP aftercare as evidenced by client's participation in group discussions and self-report of consistently applying coping skills. Client frequently reported using journaling, exercise, breathing, and positive self-talk to manage her symptoms. Client?s DSM-5 scores for depression remained the same from admission to discharge which was client?s tx goal. Client?s DSM-5 scores for anxiety went up by one point, but the score was still within the mild range for severity. Weaning off Klonopin in addition to an external stressor prior to discharge is likely the reason for report of increased anxiety. At discharge, client was consistently reporting increased ability to function. Client was working, taking classes, had gone on vacation, and her social functioning significantly improved. Issues Still to be Addressed:: Client and her outpatient psychiatrist continue to work on weaning client off of Klonopin. Client has experienced some increased anxiety during the weaning process, which is likely the reason for her slightly higher scores for anxiety. Client can also benefit from continuing to increase healthy supports, practice calming coping skills, and challenging distortions. Client had reported history of worsening mental health symptoms around time of menstruation and was encouraged to contact her doctor about this. Discharge Recommendations/Instructions:: Client is recommended to continue seeing her outpatient providers for medication management and ongoing therapy. Client sees Dr. Kendrick at [facility] for medication management and Kassy Esteves at [facility] for counseling. Discharge Handout: Complete Discharge Handout with client on aftercare options and continuity of care.
== END 2020-07-07 16:00 | disposition home or self-care (01) ==
LOC: BHOG 14:00
PROVIDERS: PCP Internal Medicine; Referring Provider Psychiatry & Neurology Psychiatry; Visit Provider Psychiatry & Neurology Psychiatry
DX: F33.0 Major depressive disorder, recurrent, mild (principal); F41.0 Panic disorder [episodic paroxysmal anxiety]; F43.10 Post-traumatic stress disorder, unspecified
CPT/HCPCS: 90853

== ENCOUNTER → 2020-09-06 09:05 | Outpatient (CLI) | payer MEDICAID, SELFPAY ==
[2020-09-06 12:01] LABS: HIV - WCH Non-Reactive (Nonreactive); Hepatitis B Surface Antibody Non-Reactive; Hepatitis B Surface Antigen Non-Reactive (Nonreactive); Hepatitis C Antibody Non-Reactive (Nonreactive); Syphilis Antibodies Non-reactive
== END ==
PROVIDERS: PCP Internal Medicine; Visit Provider Student in an Organized Health Care Education/Training Program
DX: Z11.3 Encounter for screening for infections with a predominantly sexual mode of transmission (principal)
CPT/HCPCS: 36415; 86703; 86706; 86780; 86803; 87340

== ENCOUNTER → 2020-09-20 | Outpatient (CLI) | payer MEDICAID, SELFPAY ==
[2020-09-26 16:39] LABS: HPV APTIMA, High Risk Negative (Negative)
== END | disposition home or self-care (01) ==
LOC: LABSPEC 10:05
PROVIDERS: PCP Internal Medicine; Visit Provider Obstetrics & Gynecology
DX: Z12.4 Encounter for screening for malignant neoplasm of cervix (principal)
CPT/HCPCS: 87624; 88175; G0145

== ENCOUNTER → 2020-10-20 10:21 | Outpatient (CLI) | payer MEDICAID, SELFPAY ==
--- NOTE | 2020-10-20 10:24 | BI_ITS ---
MAMMOGRAPHY - BILATERAL SCREENING REASON FOR EXAM: Female, 40 years old. Routine annual screening examination. PERTINENT HISTORY: Non-contributory. TECHNIQUE: Digital bilateral breast jacob (3D mammographic acquisition) in the CC and MLO projections. 2-D mediolateral oblique (MLO) and craniocaudad (CC) views of both breasts were obtained. CAD: Full Field Digital Mammography with Computer Added Detection was performed. COMPARISON: None. Baseline examination. FINDINGS: Breast Composition: There are scattered areas of fibroglandular density. There are no dominant masses or suspicious calcifications. Stable benign-appearing axillary lymph nodes. No other significant abnormalities are identified. There has been no significant change since the prior study. BI/SCRN MAMM (CAD)W/JACOB BILAT IMPRESSION: Negative screening mammogram. Yearly followup mammogram recommended. (A) ASSESSMENT CATEGORY: BIRADS Category 2: Benign. A letter regarding these results will be sent to the patient by the facility within 30 days. Approximately 10% of breast cancers are not detected by mammography. A normal mammogram should not delay biopsy of a clinically suspicious abnormality. [id number] Electronically Signed: Nathaniel Julian MD at 12:03 EDT , Service support ,
== END ==
PROVIDERS: PCP Internal Medicine; Referring Provider Obstetrics & Gynecology; Visit Provider Obstetrics & Gynecology
DX: Z12.31 Encounter for screening mammogram for malignant neoplasm of breast (principal)
CPT/HCPCS: 77063; 77067

== ENCOUNTER → 2020-10-21 | Outpatient (CLI) | payer MEDICAID, SELFPAY ==
--- NOTE | 2020-10-21 | IMM_PTH ---
PATIENT: CHELLE TENA LOC: [facility] U#:[id number] AGE/SX: 40/F ROOM: RE10/21/[address]: Dr. Chris Peres MD : 1980 BED: DIS: 10/21/2020 SPEC #: [id number] RECD: 10/25/20 12:21 STATUS: KARTHIKEYAN REConnor #: [id number] OSMAN: 10/21/20 00:[address]: Chris Peres DEPT: IMMUNOHISTOCHEMISTRY RECD BY: Scarlett Rowe ENTERED: 10/25/20 12:21 SP TYPE: IMMUNO OTHR DR: Dr. Martínez Beck MD Tissues: A - Uterine cervix, NOS Procedures: p16 (initial) KI-67 (add) PHYSICIAN & INSTITUTION [place] [id number] SPECIMEN INFORMATION: Tissue Source: A ? Cervix, biopsy Clinical Info: ASCUS Specimen Number: [id number] CPT code: 04024, 27911 METHODOLOGY: Deparaffinized sections of prefer/formalin-fixed tissue or PAP/DQ stained slides are incubated with monoclonal/polyclonal antibodies/oligonucleotide probes. Localization is made via biotin free immunoperoxidase method. Appropriate controls are performed and reacted as expected. Results on target cell population are indicated in the following table: RESULTS: ANTIBODY / CLONE RESULT Block A P16 (E6H4) positive, focal rare cells Ki-67 (30-9) negative These tests were developed and their performance characteristics determined by [facility]. They may not have been cleared or approved by the U.S. Food and Drug Administration. The FDA has determined that such clearance or approval is not necessary. The above immunohistochemical/dualISH markers are ordered and reviewed by the Pathologist. INTERPRETATION: A. Cervix, biopsy: Focal area suspicious for HPV cytopathic effect. AM:tez 10/26/2020
--- NOTE | 2020-10-21 | ECC_PTH ---
PATIENT: CHELLE TENA [id number] AGE/SX: 40/F ROOM: RE10/21/[address]: Dr. Chris Peres MD : 1980 BED: DIS: 10/21/2020 SPEC #: [id number] RECD: 10/21/20 15:29 STATUS: KARTHIKEYAN CARREON #: [id number] OSMAN: 10/21/20 00:[address]: Chris Peres DEPT: SURGICAL PATHOLOGY RECD BY: Marcela Contreras ENTERED: 10/23/20 17:29 SP TYPE: MYKEL URRUTIA DR: Dr. Martínez Beck MD Tissues: A - Endocervical B - Uterine cervix, NOS Procedures: Surgery Specimen Level IV HEADER OPERATION: Colposcopy with biopsy PRE-OP DIAGNOSIS: ASCUS TISSUE SUBMITTED: A - Cervical biopsies, B - ECC MICROSCOPIC DIAGNOSIS A. Cervix, biopsy: Focal HPV change suspected. See comment. B. Endocervix, curettings: Strips of benign superficial endocervix. No evidence of dysplasia. AM:tez 10/25/2020 COMMENT A. Results from immunohistochemistry ([id number]) for surrogate HPV marker (p16) will be reported separately. MICROSCOPIC DESCRIPTION Slides are reviewed. GROSS DESCRIPTION A - Received in fixative is one container labeled with the patient's name and designated cervical biopsy. The specimen consists of multiple irregular fragments of light burger soft tissue mixed with mucoid that in aggregate measure 2 x 0.5 x 0.1 cm. The specimen is totally submitted in one cassette. B - Received in fixative is one container labeled with the patient's name and designated ECC. The specimen consists of multiple irregular fragments of burger-brown mucoid tissue that in aggregate measure 2.5 x 2.5 x 0.2 cm. The entire specimen is submitted in one cassette. / SJ:tez 10/24/20 TC:3 CPT: 18819 x2
== END | disposition home or self-care (01) ==
LOC: LABSPEC 15:23
PROVIDERS: PCP Internal Medicine; Visit Provider Obstetrics & Gynecology
DX: R87.610 Atypical squamous cells of undetermined significance on cytologic smear of cervix (ASC-US) (principal)
CPT/HCPCS: 88305; 88341; 88342

== ENCOUNTER → 2022-08-03 | Outpatient (CLI) | payer BC, MEDICAID, SELFPAY ==
[2022-08-10 00:07] LABS: HPV APTIMA, High Risk Negative (Negative)
== END | disposition home or self-care (01) ==
LOC: LABSPEC 11:44
PROVIDERS: PCP Internal Medicine; Visit Provider Student in an Organized Health Care Education/Training Program
DX: Z12.4 Encounter for screening for malignant neoplasm of cervix (principal)
CPT/HCPCS: 87624; 88175; G0145

== ENCOUNTER → 2022-11-28 | Outpatient (CLI) | payer BC, MEDICAID, SELFPAY ==
[2022-11-28 11:42] LABS: Hematocrit 45.1 % (37-47); Hemoglobin 15.6 g/dL (12.0-15.0); Mean Corp Hgb Conc 34.6 g/dL (32-36); Mean Corpuscular Volume 98.3 fL (81-99); Mean Platelet Vol. 9.1 fl (6.2-12.0); Platelet Count 290 K/mm3 (150-450); RBC Distribution Width CV 12.7 % (11.6-14.6); RBC Distribution Width SD 45.6 fl (35.1-43.9); Red Blood Count 4.59 M/mm3 (4.2-5.4); White Blood Count 8.5 K/mm3 (4.4-11.0)
== END | disposition home or self-care (01) ==
LOC: PAT 01-03 15:14
PROVIDERS: PCP Internal Medicine; Referring Provider Student in an Organized Health Care Education/Training Program; Visit Provider Student in an Organized Health Care Education/Training Program
DX: Z01.810 Encounter for preprocedural cardiovascular examination (principal)
CPT/HCPCS: 36415; 85027; 86850; 86900; 86901; 93005

== ENCOUNTER → 2022-11-28 | Outpatient (CLI) | payer BC, MEDICAID, SELFPAY ==
[2022-12-04 10:09] LABS: HPV APTIMA, High Risk Negative (Negative)
== END | disposition home or self-care (01) ==
LOC: LABSPEC 11:26
PROVIDERS: PCP Internal Medicine; Visit Provider Student in an Organized Health Care Education/Training Program
DX: Z12.4 Encounter for screening for malignant neoplasm of cervix (principal)
CPT/HCPCS: 36415; 85027; 86850; 86900; 86901; 87624; 88175; 93005; G0145

== ENCOUNTER 2024-07-09 05:58 | Day surgery (SDC) | payer OTHER, SELFPAY ==
[2024-07-06 10:20] LABS: Hematocrit 41.6 % (37-47); Hemoglobin 14.6 g/dL (12.0-15.0); Mean Corp Hgb Conc 35.1 g/dL (32-36); Mean Corpuscular Hgb 33.8 pg (27.0-32.0); Mean Corpuscular Volume 96.3 fL (81-99); Mean Platelet Vol. 8.9 fl (6.2-12.0); Platelet Count 301 K/mm3 (150-450); RBC Distribution Width CV 12.7 % (11.6-14.6); RBC Distribution Width SD 44.7 fl (35.1-43.9); Red Blood Count 4.32 M/mm3 (4.2-5.4); White Blood Count 13.2 K/mm3 (4.4-11.0)
[2024-07-06 15:02] LABS: Anion Gap 11 (5-15); BUN 11 mg/dL (4-19); BUN/Creat Ratio 15.5 RATIO (10-20); Calcium,Total 8.9 mg/dL (7.6-11.0); Carbon Dioxide 21.8 mmol/L (21.0-32.0); Chloride 105 mmol/L (98-108); EST Glomerular Filtration Rate 110 (>60); Glucose 105 mg/dL (70-99); Potassium 4.1 mmol/L (3.3-5.1); Sodium Level 137 mmol/L (133-145)
--- NOTE | 2024-07-08 17:35 | HP.PCM.OB_ITS ---
History and Physical Date of Admission: 07/09/24 Bertha Qureshi MD Physician Specialty: Head Custodian H&P Signed Encounter Date: 06/29/2024 Expand All Collapse All Pre-Op History and Physical HPI: The patient is a 43 year old female presenting for discussion regarding sterilization- requesting laparoscopic bilateral salpingectomy. pre-operative visit. She is scheduled for bilateral salpingectomy, for desires sterilization on 07/09/24. Procedure discussed along with risks, benefits and complications. Other alternatives discussed for management. Consent form signed? Yes. PAST MEDICAL HISTORY PAST MEDICAL HISTORY Diagnosis Date ? Depression ? NEGATIVE MEDICAL HISTORY Usual childhood illness, varicella PAST SURGICAL HISTORY PAST SURGICAL HISTORY Procedure Laterality Date ? PARAGARD IUD 2016 CURRENT MEDICATIONS Current Outpatient Medications Medication Sig Dispense Refill ? escitalopram oxalate (LEXAPRO) 20 mg tablet Take 20 mg by mouth once daily. No current facility-administered medications for this visit. ALLERGIES: Patient has no known allergies. PERSONAL HISTORY: SOCIAL HISTORY Social History Tobacco Use ? Smoking status: Every Day Current packs/day: 0.50 Average packs/day: 0.5 packs/day for 10.0 years (5.0 ttl pk-yrs) Types: Cigarettes ? Smokeless tobacco: Never Vaping Use ? Vaping status: Never Used Substance Use Topics ? Alcohol use: Not Currently ? Drug use: Not Currently Types: Marijuana FAMILY HISTORY: FAMILY HISTORY FAMILY HISTORY Problem Relation Age of Onset ? Hypertension Mother ? Coronary Artery Disease Mother , 1st ND age 56 ? Cancer Brother bone cancer, dec. age 16 ? other (HTN) Maternal Grandmother ? Diabetes Paternal Grandmother REVIEW OF SYMPTOMS: negative except as noted above PHYSICAL EXAMINATION: VITALS: Blood pressure 132/80, height 165.1 cm (5' 5), weight 114.8 kg (253 lb), last menstrual period 06/12/2024. GENERAL: The patient is well nourished, well hydrated in no acute distress. , The patient is oriented to time, place, and person. NECK: full range of motion IMPRESSION: 43yo desires sterilization PLAN: Laparoscopic bilateral salpingectomy Pt has been counseled on risks/benefits and alternatives of surgery including but not limited to anesthesia, bleeding, infection, injury to pelvic structures including bowel, bladder, ureters and vessels. Pt wishes to proceed with surgery at this time. Pre and post op instructions reviewed. Pt advised to not smoke day of surgery. Pre op labs ordered at [facility]- CBC and BMP, urine . No recent labs in system. I have reviewed and updated past medical and surgical history, medications and allergies
[2024-07-09] VITALS (10 sets, daily range): BP systolic 140–154; BP diastolic 83–104; PULSE 62–73; RESP 12–16; TEMP 36.1–36.8; O2SAT 92–98; BMI 42.0
[2024-07-09 06:39] LABS: Internal QC Validated? YES +Cl - CLEAR BKGD; Pregnancy, Urine Negative Negative
[2024-07-09] MEDS: 0.9% Normal Saline (1000mL) 1,000 ML 15 ML IV (07:04)
--- NOTE | 2024-07-09 07:21 | PRE.ANES_ITS ---
ASA Classification* ASA Classification ASA Classification: 3 Assessment & Plan Anesthesia* Anesthesia Assessment Anesthesia Assessment: Discussed sedation and/or anesthesia options, risks, benefits, and alternatives with patient/parents/legal guardian/POA. Questions invited. The patient/parents/legal guardian/POA seems to understand and agrees to proceed with anesthesia plan. Reviewed the physical assessment, medical history, allergy history and patient home medications list prior to surgery/procedure/anesthetic and documented any changes. Performed airway and anesthesia risk assessments. Anesthesia Type Anesthesia Type: General History Source History Obtained from:: Patient and Chart Anesthesia Focused Assessment* Temperature: 98.3 F Pulse Rate: 71 Blood Pressure: 150/93 Respiratory Rate: 16 Pulse Ox: 96 Oxygen Delivery Method: Room Air Airway Assessment Mouth opens: >3 cm Mallampati Score: III Teeth Condition: Caps/Crowns (Patient has a couple crowns. They are tight.) and Partial (Patient has upper and lower partials. She will take those out.) Neck Range of motion (ROM): Limited ROM (Slight decrease in extension) Focused Labs Anesthesia Preop lab: CBC WBC 13.2 K/mm3 (4.4-11.0) H 07/06/24 10:11 5 RBC 4.32 M/mm3 (4.2-5.4) 07/06/24 10:11 07/06/24 Hgb 14.6 g/dL (12.0-15.0) 07/06/24 10:11 07/06/24 Hct 41.6 % (37-47) 07/06/24 10:11 07/06/24 Plt Count 301 K/mm3 (150-450) 07/06/24 10:11 07/06/24 CHEMISTRY Potassium 4.1 mmol/L (3.3-5.1) 07/06/24 10:11 07/06/24 Sodium 137 mmol/L (133-145) 07/06/24 10:11 07/06/24 BUN 11 mg/dL (4-19) 07/06/24 10:11 07/06/24 Creatinine 0.70 mg/dL (0.70-1.20) 07/06/24 10:11 07/06/24 Glucose 105 mg/dL (70-99) H 07/06/24 10:11 07/06/24 TSH 1.24 uIU/mL (0.358-3.74) 06/05/16 12:00 COAG Urine Test Negative Negative 07/09/24 06:19 07/09/24 Pre-Assessment Diagnosis/Proposed Procedure Planned Operative Procedure(s): (B) Laparoscopic, bilateral Salpingectomy Anesthesia History 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 When Was Last Pacemaker Check QUESTION #4 FULL TEXT: You/Your Family Experience fever (hyperthermia) with Anesthesia Last Oral Intake Last Oral intake: Last Oral Intake NPO since 22:30 07/09/24 06:33 Meds taken in AM with sips of No 07/09/24 06:33 water? Meds patient instructed to take am of surgery PONV PONV - business machines teacher: PONV - business machines teacher Female Yes 07/01/24 11:13 HX of Motion Sickness No 07/01/24 11:13 HX of N/V After Surgery No 07/01/24 11:13 Non-Smoker No 07/01/24 11:13 Duration of Surgery greater No 07/01/24 11:13 than 60 minutes Number of Risk Factors 1 07/01/24 11:13 PONV Score Low Risk 07/01/24 11:13 Height & Weight Height & Weight: Anesthesia: Height & Weight Height 5 ft 5 in 07/09/24 06:33 Weight: 114.668 kg 07/09/24 06:33 Body Mass Index (BMI) 42.0 07/09/24 06:33 Respiratory Assessment Respiratory Assessment - business machines teacher: Respiratory Tract Infection Hx - business machines teacher Hx Respiratory Tract Infection No 07/01/24 11:13 STOP Sleep Apnea STOP Sleep Apnea - business machines teacher: STOP Sleep Apnea - business machines teacher Hx Hypertension No 07/01/24 11:13 Hx Sleep Apnea No 07/01/24 11:13 CPAP BIPAP Do you snore loudly (louder Yes 07/01/24 11:13 than talking or can be heard Do you often feel tired/ No 07/01/24 11:13 fatigued/ sleepy during daytime? Has anyone observed you stop No 07/01/24 11:13 breathing during sleep? STOP Results Negative 07/01/24 11:13 QUESTION #5 FULL TEXT : Do you snore loudly (louder than talking or can be heard through closed doors)? 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 Specify any problems Hx of Preganancy in last 3 N/A 07/01/24 11:13 Months Nurse Filling Out Transfusion NBUCHER 07/01/24 11:13 & Questions: Date: 07/01/24 07/01/24 11:13 Time: 11:13 07/01/24 11:13 Patient unable to answer at this time (ie. confused, unrespo /Reproduction History /Reproductive History - business machines teacher: /Reproductive Hx- business machines teacher Hx Now No 07/01/24 11:13 Gestational Age (in weeks): EDC: Hx Hx Para Hx Section SAB No 07/01/24 11:13 Active Medications Active Medications: Current Medications Generic Name Dose Route Start Last Admin Trade Name Freq PRN Reason Stop Dose Admin Sodium Chloride 1,000 mls @ 15 mls/hr 07/09/24 06:40 07/09/24 07:04 IV 15 mls/hr .Q48H GARETH Administration PFSH Medical History Physical exam, pre-employment Wears partial dentures Alcohol use Heartburn Shortness of breath on exertion Smoker History of edema Benzodiazepine dependence History of posttraumatic stress disorder (PTSD) Panic disorder Major depressive disorder, recurrent severe without psychotic features Home Medications ?Medication ?Instructions ?Recorded ?Last Taken ?Type escitalopram oxalate 10 mg tablet 20 mg PO QHS 3 07/08/24 History Allergy/AdvReac Type Severity Reaction Status Date / Time No Known Allergies Allergy Verified 07/09/24 06:31 Surgical History History of wisdom tooth extraction Social History Smoking Status: Current every day smoker tobacco type: cigarettes Review of Systems (Anesthesia) ROS Narrative System reviewed and no additional complaints, except as documented.
--- NOTE | 2024-07-09 07:30 | FALS_PTH ---
PATIENT: CHELLE DEAN LOC: [facility] [place] U#:[id number] AGE/SX: 43/F ROOM: RE07/09/[address]: Dr. Bertha Adams, MDDOB: 1980 BED: DIS: 07/09/2024 SPEC #: [id number] RECD: 07/09/24 09:39 STATUS: KARTHIKEYAN LAURI #: [id number] OSMAN: 07/09/24 07:[address]: Bertha Adams DEPT: SURGICAL PATHOLOGY RECD BY: Julian Zacarias ENTERED: 07/09/24 09:39 SP TYPE: FALL TUBES OTHR DR: MD Dr. Martínez Talley MD Tissues: A - Fallopian tube Procedures: Surgery Specimen Level II HEADER OPERATION: Laparoscopic bilateral salpingectomy PRE-OP DIAGNOSIS: Desires sterilization TISSUE SUBMITTED: A- Bilateral fallopian tubes MICROSCOPIC DIAGNOSIS A. BILATERAL FALLOPIAN TUBES, BILATERAL SLPINGECTOMY: -NO SPECIFIC PATHOLOGIC CHANGE (CONFIRMED). MICROSCOPIC DESCRIPTION Slides are reviewed. GROSS DESCRIPTION A. Received in formalin labeled, Chelle Dean, and designated bilateral fallopian tubes, are three segments of red-burger, smooth, unoriented fallopian tubes. The two shorter segments contain fimbria, and the longest segment has no fimbria. The segments measure 2.2 cm long by 0.6 cm in diameter, 6.2 cm long by 0.6 cm in diameter, and 8.2 cm long by 0.6 cm in diameter from shortest to longest, respectively. Sectioning through the fragments show an unremarkable lumen. Cargo [employer] Ramp Services Manager sections are submitted as follows:Cassette Summary:A1-shortest segment one cross-section and bisected fimbria, two cross-sections of the longest segment (inked black)A2-intermediate length segment cross-sections and bisected fimbria 07/09/2024 CPT:63344z3
[2024-07-09] MEDS: Bupivacaine 0.5% PF 10 ML VIAL (07:59)
--- NOTE | 2024-07-09 08:28 | DCINST_ITS ---
Discharge Instructions Diet Discharge Diet: No restrictions DC O2, CPAP, BIPAP needs Home O2 Discharge instructions: No Dressing / Incision May resume sexual activity in: 2 weeks Lifting Restrictions: 20-25 lbs Dressing / Incision Call your doctor if your incision/area has: Continuous Slow Oozing, Sudden Increased Bleeding, Increased Pain/ Swelling, Increased Redness, Foul Smelling Discharge and Swelling at the incision site Call your doctor if you observe: Fever of 101 or Higher, Inability to urinate, Inability to have a bowel movement, Using more than 1 pad per hour and Uncontrolled pain Additional Dressing/Incision Instructions:: You have skin glue over your incision sites, do not pick off. You may shower and let the soap and water run over the incision sites and dab dry. Follow Up Care Please Follow Up With: Bertha Adams MD When: 1-2 weeks post OP if you need an appointment please call [phone] Test Results: Test results from this visit will be discussed in further detail at your follow- up appointment, if applicable. Discharge Plan Admission Attending Provider: Bertha Adams Primary Care Provider: Martínez Beck Consulting Providers: Nithya Busby Instructions Print Language: [place] Discharge Orders/Prescriptions Prescriptions: No Action escitalopram oxalate 10 MG tablet 20 mg PO QHS Referrals / Follow Up: Martínez Beck MD [Primary Care Provider] - Disposition Disposition (needs filled in before D/C Order can be placed): Home, Self Care
--- NOTE | 2024-07-09 08:29 | OP.PCM_ITS ---
Operative Report (Standard) Operative Information Date of Procedure: 07/09/24 Pre-Operative Diagnosis: desires sterilization Post-Operative Diagnosis: same Surgery/Procedure Performed: Laparoscopic bilateral salpingectomy bus mechanic: Yes Integrated Logistics Support Manager: stephon larson [email or web address] Tasks completed by assistant in nursing: Other (holding camera, retracting tissue, closing) Additional records assistant?: No Type of Anesthesia: General and MAC RN Documented Start/Stop Times: Operation Date: 07/09/24 07:30 Case Time Into Pre-Op 07/09/24 06:17 Out of Pre-Op 07/09/24 07:28 Anesthesia Start 07/09/24 07:35 Into Room 07/09/24 07:35 Procedure Start 07/09/24 07:57 Procedure Start Time: 07:57 Procedure Stop Time: 08:29 Select all DRAINS/GRAFTS/IMPLANTS that apply: None Estimated Blood Loss: <5cc Specimen collected: Yes Description of specimen(s) removed: bilateral fallopian tubes Description of surgery: After informed consent was obtained patient was taken to the operating room she was placed in supine position she was given anesthesia. [facility] and she was prepped and draped in normal sterile fashion. Bladder was drained prior to the start of procedure. At this time attention was turned to the vaginal portion where weighted speculum placed at posterior fornix vagina single-tooth tenaculum was used to gently grasp the internal the cervix. uterus was gently sounded to approximately 8 cm. Uterine manipulator was placed without difficulty. Legs then placed in parallel with the abdomen the tenaculum and the weighted speculum were removed. 2 towel clamps were placed at level of umbilicus. Marcaine was injected infraumbilical and a small incision was made. The 5 mm trocar was placed under direct visualization. CO2 gas was used to insufflate the intra-abdominal cavity. Upon inspection no gross abnormalities appreciated- the uterus tubes and ovaries appeared to be normal. At this time then the LLQ and RLQ ports were placed First Marcaine was injected and small incision was made a knife and the 5 mm trocars were placed. At this time then tubes were traced back to the fimbriated ends. Enseal was used to coagulate and ligate along mesosalpynx bilaterally until tubes removed completely. Good hemostasis was appreciated. At this time procedure was deemed complete successful. The gas was desufflated on from the intra-abdominal cavity. The trochars were removed. Skin was closed using 4-0 Monocryl in a subcutaneous fashion. Dermabond glue was placed. Instrument lap and needle counts were correct ?2. The uterine manipulator was removed. Vaginal sweep was performed it was negative. There were no complications anticipated normal postoperative course for this patient. Surgical Findings: normal uterus, tubes and ovaries Complications Complications: No Admit VTE Documentation VTE Present on Admission: Yes VTE Mechan Device Prophylaxis: SCD's VTE Pharm Prophylaxis ordered?: No Reason prophylaxis not ordered: Treatment Not Indicated
--- NOTE | 2024-07-09 08:43 | PCM.POST.ANE ---
Anesthesia: Postop Eval I Current Vital Signs Temperature: 97 F Pulse Rate: 62 Blood Pressure: 144/83 Respiratory Rate: 12 Pulse Ox: 98 Oxygen Delivery Method: Room Air Assessment Airway patent: Yes Spontaneous unlabored respirations: Yes Mental status: Awake nausea: Yes Vomiting: No Anesthesia Complication: No Fluid Hydration Crystalloid volume administer (ml): 1,000 Total IV fluid infused: 1,000 Progress Note Anesthesia document: Postop Eval 1 completed: Yes
--- NOTE | 2024-07-09 22:39 | POSTOPAN2_ITS ---
Anesthesia Postop Eval I Sum Postop Eval Completion status Anesthesia document: Postop Eval 1 completed: Yes Anesthesia Postop Eval I Summary Anesthesia Postop Eval I Summary: Anesthesia Postop Eval I: Assessment Summary Airway patent Yes 07/09/24 08:43 DRIVER [email or web address] Spontaneous unlabored Yes 07/09/24 08:43 DRIVER [email or web address] respirations Mental status Awake 07/09/24 08:43 DRIVER [email or web address] nausea Yes 07/09/24 08:43 DRIVER [email or web address].HBARR Vomiting No 07/09/24 08:43 DRIVER [email or web address].HBARR Anesthesia Postop Eval I: Fluid Summary Crystalloid volume administer 1,000 07/09/24 08:43 DRIVER [email or web address].HBARR (ml) Colloids volume administered ( ml) Blood Product volume administered (ml) Total IV fluid infused 1,000 07/09/24 08:43 DRIVER [email or web address].HBARR Anesthesia Postop Eval I: Summary Notes Anesthesia Complication No 07/09/24 08:43 DRIVER [email or web address].HBARR Anesthesia Complication Comment: Post-operative progress note Anesthesia: Postop Eval II Evaluation Mental status: Awake and Calm Pain Level: 0 nausea: No Vomiting: No Progress Note Post-operative progress note: Nausea has improved. Complications Anesthesia Complication: No
--- NOTE | 2024-07-09 22:39 | PCM.POSTANE2 ---
Anesthesia Postop Eval I Sum Postop Eval Completion status Anesthesia document: Postop Eval 1 completed: Yes Anesthesia Postop Eval I Summary Anesthesia Postop Eval I Summary: Anesthesia Postop Eval I: Assessment Summary Airway patent Yes 07/09/24 08:43 DETECTIVE BUREAU [email or web address].[email or web address] Spontaneous unlabored Yes 07/09/24 08:43 DETECTIVE BUREAU CHIEF.HBARR respirations Mental status Awake 07/09/24 08:43 DETECTIVE BUREAU CHIEF.HBARR nausea Yes 07/09/24 08:43 DETECTIVE BUREAU CHIEF.HBARR Vomiting No 07/09/24 08:43 DETECTIVE BUREAU CHIEF.HBARR Anesthesia Postop Eval I: Fluid Summary Crystalloid volume administer 1,000 07/09/24 08:43 DETECTIVE BUREAU CHIEF.HBARR (ml) Colloids volume administered ( ml) Blood Product volume administered (ml) Total IV fluid infused 1,000 07/09/24 08:43 DETECTIVE BUREAU CHIEF.HBARR Anesthesia Postop Eval I: Summary Notes Anesthesia Complication No 07/09/24 08:43 DETECTIVE BUREAU CHIEF.HBARR Anesthesia Complication Comment: Post-operative progress note Anesthesia: Postop Eval II Evaluation Mental status: Awake and Calm Pain Level: 0 nausea: No Vomiting: No Progress Note Post-operative progress note: Nausea has improved. Complications Anesthesia Complication: No
== END 2024-07-09 10:20 | disposition home or self-care (01) ==
LOC: SDC 06:02 → AC 06:03
PROVIDERS: Obstetrics & Gynecology; PCP Internal Medicine; Referring Provider Obstetrics & Gynecology; Visit Provider Obstetrics & Gynecology
PROC: (CPT 58661; principal; 2024-07-09 07:15)
DX: Z30.2 Encounter for sterilization (principal); F32.A Depression, unspecified; F17.210 Nicotine dependence, cigarettes, uncomplicated; Z79.899 Other long term (current) drug therapy
CPT/HCPCS: 58661; 00840; 36415; 80048; 81025; 85027; 88302; J2405